=== PATIENT | female | born 1950 | race Caucasian/White ===

== ENCOUNTER 2019-05-15 16:52 | Inpatient (IN) | payer MEDICARE, OTHER ==
[~2019-05-15] VITALS: Ht 172.7 cm; Wt 72.6 kg
[2019-05-15 17:05] LABS: BASOPHILS % (AUTO) 0 % (0-10); EOSINOPHILS # (AUTO) 0.2 10^3/uL (0.0-0.3); EOSINOPHILS % (AUTO) 3 % (0-10); HEMATOCRIT 35 % (35-52); HEMOGLOBIN 11.5 G/DL (11.5-16.0); LYMPHOCYTES # (AUTO) 1.7 X 10^3 (1.0-4.0); LYMPHOCYTES % (AUTO) 21 % (12-44); MEAN CORPUSCULAR HEMOGLOBIN 32 PG (25-34); MEAN CORPUSCULAR HGB CONC 33 G/DL (32-36); MEAN CORPUSCULAR VOLUME 96 FL (80-99); MEAN PLATELET VOLUME 10.3 FL (7.4-10.4); MONOCYTES # (AUTO) 0.5 X 10^3 (0.0-1.0); MONOCYTES % (AUTO) 6 % (0-12); NEUTROPHILS # (AUTO) 5.7 X 10^3 (1.8-7.8); NEUTROPHILS % (AUTO) 70 % (42-75); PLATELET COUNT 240 10^3/uL (130-400); RED CELL DISTRIBUTION WIDTH 12.2 % (10.0-14.5); WHITE BLOOD COUNT 8.1 10^3/uL (4.3-11.0)
[2019-05-15 17:12] LABS: INR 1.1 (0.8-1.4); PROTHROMBIN TIME PATIENT 14.9 SEC (12.2-14.7)
--- NOTE | 2019-05-15 17:29 | Diagnostic Imaging Report ---
PROCEDURE: CT head and CT cervical spine without contrast. TECHNIQUE: Multiple contiguous axial images were obtained through the brain and cervical spine without the use of intravenous contrast. Sagittal and coronal reformations through the cervical spine were then performed. Auto Exposure Controls were utilized during the CT exam to meet ALARA standards for radiation dose reduction. INDICATION: Fall with head and neck pain. COMPARISON: No prior studies are available for comparison. FINDINGS: CT head: The ventricles and sulci are within normal limits. No sulcal effacement or midline shift is detected. Cisterns are patent. Visualized paranasal sinuses are clear. IMPRESSION: No acute intracranial process is detected. CT cervical spine: Curvature and alignment is normal. There is generalized cervical degenerative disc and facet disease. It is greatest at C4-C5 and C5-C6 levels with moderate disc space narrowing and marginal spurring. Prevertebral tissues are normal. No fractures are identified. Odontoid is intact. IMPRESSION: Cervical spondylosis. No acute bony abnormality is detected. Dictated by: Dictated on workstation # [id number]
[2019-05-15 17:31] LABS: ALBUMIN 3.8 GM/DL (3.2-4.5); BILIRUBIN,TOTAL 0.2 MG/DL (0.1-1.0); CREATININE SERUM 1.14 MG/DL (0.60-1.30); POTASSIUM 3.4 MMOL/L (3.6-5.0); TOTAL PROTEIN 6.6 GM/DL (6.4-8.2)
--- NOTE | 2019-05-15 17:32 | Diagnostic Imaging Report ---
INDICATION: Fall. TIME OF EXAM: 5:21 p.m. COMPARISON: No prior studies are available for comparison. FINDINGS: The heart size is normal. The lungs are clear. No infiltrate, effusion, or pneumothorax is seen. Bony structures are unremarkable. IMPRESSION: No acute abnormality is detected. Dictated by: Dictated on workstation # [id number]
[2019-05-15] MEDS ORDERED: fentaNYL INJECTION 100 MCG/2 ML AMP IVP STA (17:33)
--- NOTE | 2019-05-15 17:35 | Diagnostic Imaging Report ---
INDICATION: Fall, left leg pain. TIME OF EXAM: 5:16 PM FINDINGS: Left femoral neck fracture is noted. There is coxa varus deformity. Remainder of the femur appears to be intact. There is normal alignment at the knee. IMPRESSION: Left femoral neck fracture. Dictated by: Dictated on workstation # [id number]
--- NOTE | 2019-05-15 17:40 | Diagnostic Imaging Report ---
INDICATION: Fall with left leg pain. TIME OF EXAM: 05:15 p.m. FINDINGS: AP view of the pelvis and two views of the left hip demonstrate an acute fracture through the left femoral neck. Femoroacetabular alignment is maintained. Right hip is intact. Rami are intact. IMPRESSION: Left femoral neck fracture. Dictated by: Dictated on workstation # [id number]
--- NOTE | 2019-05-15 17:50 | ED Fall/Injury ---
General Chief Complaint: Trauma EMS/Air Arrival Activat Stated Complaint: L HIP PAIN,FALL Nursing Triage Note: fall, fell down unknown number of steps in garage, unknown LOC Source: patient Exam Limitations: no limitations History of Present Illness Date Seen by Provider: May 15, 2019 Time Seen by Provider: 16:54 Initial Comments Here with report of fall down several steps in the garage at a friend's house. She does not remember past the fall for a brief period time and is unsure if she lost consciousness. She is on blood thinners for history of pulmonary embolism a month ago. Does have a laceration to the right forearm and complains of severe left hip pain. EMS did give fentanyl after establishing IV and a dose of 50 g. This did help some. Unsure she hit her head. Denies other injuries of the chest or abdomen. Unsure when her last tetanus shot was. She is from [place], [place]. Occurred: just prior to arrival (approximately 30-45 minutes ago) Severity: moderate Injuries/Pain Location: upper extremity, pelvis, lower extremity Context: tripped Loss of Consciousness: unsure Modifying Factors: Improves With Immobilization; Worse With Movement; Improves With Pain Medication, Improves With Rest Associated Symptoms (Fall): No Abdominal Pain, No Chest Pain, No Confusion, No Headache, No Lightheadedness; Muscle Spasms (leg); No Neck Pain, No Shortness of Air Allergies and Home Medications Allergies Coded Allergies: No Known Drug Allergies (Unverified , 05/15/19) Patient Home Medication List Home Medication List Reviewed: Yes (reviewed pharmacy reconciliation list and is on blood thinners as well as endocrine meds.) Review of Systems Review of Systems Constitutional: see HPI; No chills, No fever Eyes: No Symptoms Reported Ears, Nose, Mouth, Throat: no symptoms reported Respiratory: No cough, No short of breath Cardiovascular: No chest pain Gastrointestinal: No abdominal pain, No nausea, No vomiting Genitourinary: no symptoms reported Musculoskeletal: see HPI; No back pain; joint pain, muscle pain; No neck pain Skin: No change in color; lesions (3 cm laceration right forearm) Psychiatric/Neurological: No Symptoms Reported All Other Systems Reviewed Negative Unless Noted: Yes Past Lfkmdba-Lkpkap-Vvhbsl Hx Past Med/Social Hx: Reviewed Nursing Past Med/Soc Hx Patient Social History Alcohol Use: Denies Use Recreational Drug Use: No Smoking Status: Never a Smoker Recent Foreign Travel: No Contact w/Someone Who Travel: No Recent Infectious Disease Expo: No Past Medical History Surgeries: Yes Orthopedic Respiratory: Yes Pulmonary Embolism Cardiac: No Neurological: No Genitourinary: No Gastrointestinal: No Musculoskeletal: Yes Fractures Endocrine: Yes (endocrine disorder involving thyroid and other endocrine systems) Hypothyroidsim Cancer: No Psychosocial: Yes Depression Family Medical History No Pertinent Family Hx Physical Exam Vital Signs Vital Signs - First Documented 05/15/19 16:52 Temp 98.5 Pulse 109 Resp 20 B/P (MAP) 153/72 (99) Pulse Ox 98 O2 Delivery Room Air Capillary Refill : Less Than 3 Seconds Height, Weight, BMI Height: 5'8.00" Weight: 155lbs. oz. 70.699801sq; 21.09 BMI Method:Stated General Appearance: WD/WN, moderate distress HEENT: PERRL/EOMI, pharynx normal Neck: non-tender, full range of motion, supple, normal inspection Cardiovascular: no murmur, tachycardia Respiratory: lungs clear Peripheral Pulses: 2+ Dorsalis Pedis (R), 2+ Left Dors-Pedis (L), 2+ Radial Pulses (R), 2+ Radial Pulses (L) Gastrointestinal: non tender, soft Back: normal inspection, no CVA tenderness, no vertebral tenderness Extremities: no pedal edema, no calf tenderness, other (significant pain to left hip with muscle spasms noted to the upper thigh. Shortened and externally rotated leg on the left.) Neurologic/Psychiatric: alert, normal mood/affect, oriented x 3 Skin: normal color, warm/dry, other (3 cm laceration left forearm) Lymphatic: no adenopathy [address] Coma Score Best Eye Response: (4) Open Spontaneously Best Verbal Response: (5) Oriented Best Motor Response: (6) Obeys Commands Progress/Results/Core Measures Results/Orders Lab Results Laboratory Tests Test 05/15/19 16:55 05/15/19 18:06 Range/Units White Blood Count 8.1 4.3-11.0 10^3/uL Red Blood Count 3.58 L 4.35-5.85 10^6/uL Hemoglobin 11.5 11.5-16.0 G/DL Hematocrit 35 35-52 % Mean Corpuscular Volume 96 80-99 FL Mean Corpuscular Hemoglobin 32 25-34 PG Mean Corpuscular Hemoglobin Concent 33 32-36 G/DL Red Cell Distribution Width 12.2 10.0-14.5 % Platelet Count 240 130-400 10^3/uL Mean Platelet Volume 10.3 7.4-10.4 FL Neutrophils (%) (Auto) 70 42-75 % Lymphocytes (%) (Auto) 21 12-44 % Monocytes (%) (Auto) 6 0-12 % Eosinophils (%) (Auto) 3 0-10 % Basophils (%) (Auto) 0 0-10 % Neutrophils # (Auto) 5.7 1.8-7.8 X 10^3 Lymphocytes # (Auto) 1.7 1.0-4.0 X 10^3 Monocytes # (Auto) 0.5 0.0-1.0 X 10^3 Eosinophils # (Auto) 0.2 0.0-0.3 10^3/uL Basophils # (Auto) 0.0 0.0-0.1 10^3/uL Prothrombin Time 14.9 H 12.2-14.7 SEC INR Comment 1.1 0.8-1.4 Activated Partial Thromboplast Time 24 24-35 SEC Sodium Level 137 135-145 MMOL/L Potassium Level 3.4 L 3.6-5.0 MMOL/L Chloride Level 103 98-107 MMOL/L Carbon Dioxide Level 24 21-32 MMOL/L Anion Gap 10 5-14 MMOL/L Blood Urea Nitrogen 22 H 7-18 MG/DL Creatinine 1.14 0.60-1.30 MG/DL Estimat Glomerular Filtration Rate 48 BUN/Creatinine Ratio 19 Glucose Level 97 70-105 MG/DL Calcium Level 9.0 8.5-10.1 MG/DL Corrected Calcium 9.2 8.5-10.1 MG/DL Total Bilirubin 0.2 0.1-1.0 MG/DL Aspartate Amino Transf (AST/SGOT) 24 5-34 U/L Alanine Aminotransferase (ALT/SGPT) 31 0-55 U/L Alkaline Phosphatase 83 40-136 U/L Total Protein 6.6 6.4-8.2 GM/DL Albumin 3.8 3.2-4.5 GM/DL Urine Color YELLOW Urine Clarity CLEAR Urine pH 7 5-9 Urine Specific [place] 1.020 1.016-1.022 Urine Protein NEGATIVE NEGATIVE Urine Glucose (UA) NEGATIVE NEGATIVE Urine Ketones NEGATIVE NEGATIVE Urine Nitrite NEGATIVE NEGATIVE Urine Bilirubin NEGATIVE NEGATIVE Urine Urobilinogen NORMAL NORMAL MG/DL Urine Leukocyte Esterase NEGATIVE NEGATIVE Urine RBC (Auto) NEGATIVE NEGATIVE Urine RBC NONE /HPF Urine WBC NONE /HPF Urine Squamous Epithelial Cells 0-2 /HPF Urine Crystals NONE /LPF Urine Bacteria TRACE /HPF Urine Casts NONE /LPF Urine Mucus NEGATIVE /LPF Urine Culture Indicated NO My Orders Orders - RONNIE DOWLING MD Ct Head/Cervical Spine Wo (05/15/19 16:57) Chest 1 View, Ap/Pa Only (05/15/19 16:57) Femur, Left, 2 Views (05/15/19 16:57) Pelvis With Left Hip 2-3 Views (05/15/19 16:57) Cbc With Automated Diff (05/15/19 16:57) Comprehensive Metabolic Panel (05/15/19 16:57) Ua Culture If Indicated (05/15/19 16:57) Monitor-Rhythm Ecg Trace Only (05/15/19 16:57) End Tidal Co2 (05/15/19 16:57) Protime With Inr (05/15/19 16:57) Partial Thromboplastin Time (05/15/19 16:57) Fentanyl Injection (Sublimaze Injection (05/15/19 17:33) Catheter(Urinary) Insert & Ass 03,15 (05/15/19 17:51) Catheter(Urinary) Insert & Ass 03,15 (05/15/19 17:55) Dipht,Pertuss(Acell),Tet Adult (Boostrix (05/15/19 18:00) Lidocaine 1% Inj 20 Ml (Xylocaine 1% Inj (05/15/19 18:00) Hydromorphone Injection (Dilaudid Inject (05/15/19 18:16) Ketorolac Injection (Toradol Injection) (05/15/19 19:08) Hydromorphone Injection (Dilaudid Inject (05/15/19 19:15) Medications Given in ED Current Medications Medications Dose Ordered Sig/Latrell Route Start Time Stop Time Status Last Admin Dose Admin Diphtheria/ Tetanus/Acell Pertussis 0.5 ml ONCE ONCE IM 05/15/19 18:00 05/15/19 18:01 DC 05/15/19 18:27 0.5 ML Hydromorphone HCl 0.5 mg ONCE ONCE IV 86/19 19:15 05/15/19 19:16 DC 05/15/19 19:16 0.5 MG Hydromorphone HCl 2 mg STK-MED ONCE .ROUTE 05/15/19 18:16 05/15/19 18:22 DC 05/15/19 18:24 0.5 MG Lidocaine HCl 20 ml ONCE ONCE INJ 05/15/19 18:00 05/15/19 18:01 DC 05/15/19 18:34 20 ML Vital Signs/I&O 05/15/19 16:52 Temp 98.5 Pulse 109 Resp 20 B/P (MAP) 153/72 (99) Pulse Ox 98 O2 Delivery Room Air Blood Pressure Mean: 99 Progress Progress Note : Progress Note Type 2 trauma activation due to age, blood thinners and report of possible loss of consciousness. ATLS exam performed. Concerns of left hip fracture. IV by EMS. Labs, CT head and neck, chest x-ray, pelvis and left hip x-ray and left femur x- ray ordered. Tetanus ordered. Monitor patient. 1749: Hip fracture noted. I did discuss the case at length with the patient. She is from [facility] and has complex endocrine disorder as well as history of recent DVT. Her ort hopedist an security systems specialist are at [place] [facility] and she would like to pursue care in her medical system which is appropriate. She would like to talk with her about this more. 1839: Patient would like me to pursue transfer. I will make contact with [facility] in [facility]. 1855: I have discussed the case with the transfer center at [facility] in [place], [place]. They are currently on ER diversion and are unable to accept the patient at this point. Patient's is here and they have asked me to call the patient's orthopedic surgeon and they did give me his phone number. His name is Dr. Franc Hoskins.1906: I have called and left message with him and am pending call back. 1908: Patient has had repeat doses of pain medicine with Dilaudid 0.5 mg 1 earlier and I will repeat that times one now as well as Toradol 15 mg IV due to persistent pain. We have tried comfort measures as well with positioning. 1999: I have discussed the case with patient's orthopedic surgeon who works at a fre[facility]anding surgery [facility] and is not able to help with transfer to [facility] but did provide quite a bit of medical information which was very helpful. Patient did have blood clot approximately 1- 1/2 month ago to the lungs and is currently on Eliquis for that. Her endocrine disorders is to be mostly related to hypothyroidism that is controlled current ly. Pituitary system was reported to be okay. Patient does have underlying depression and anxiety that is well controlled. I have discussed the case with Dr. Cullen and he will see the patient in consult and evaluate for surgery but is concerned related to Eliquis use. Patient's last dose of Eliquis was 8 AM this morning and has not had any of her evening doses. Dr. Cullen is requesting clearance and patient to remain nothing by mouth overnight. He is also requesting Segovia's traction at 5 pounds which was ordered. I did discuss the case with Dr. OROURKE and he has accepted patient for admission. We will continue Dilaudid as needed for pain as well as fluids and nausea medicines. I discussed the case with Dr. Bennett and he is recommending bridge with heparin as that is the safest and will require the least time for clearance for surgery. Patient will need 24 hours for clearance from her Eliquis. Again her last dose was 8 AM this morning so 24 hours would be a a.m. tomorrow morning. He will see her for medical clearance as well. EKG in the a.m. I did discuss all of this with the patient and family. At this point it seems reasonable to pursue the surgery here although there is still possibility that they could consider transfer to [facility] if it were to open up from diversion in the future. Patient and family are in agreement with plan. Currently patient is comfortable and without distress. All questions answered. Diagnostic Imaging Diagonstic Imaging: CT Plain Films/CT/US/NM/MRI: c-spine, head Comments NAME: LEI JULIO [facility] REC#: [id number] PT STATUS: REG ER : 1950 PHYSICIAN: RONNIE DOWLING MD ADMIT DATE: 05/15/19/ER Signed Date of Exam: 05/15/19 CT HEAD/CERVICAL SPINE WO PROCEDURE: CT head and CT cervical spine without contrast. TECHNIQUE: Multiple contiguous axial images were obtained through the brain and cervical spine without the use of intravenous contrast. Sagittal and coronal reformations through the cervical spine were then performed. Auto Exposure Controls were utilized during the CT exam to meet ALARA standards for radiation dose reduction. INDICATION: Fall with head and neck pain. COMPARISON: No prior studies are available for comparison. FINDINGS: CT head: The ventricles and sulci are within normal limits. No sulcal effacement or midline shift is detected. Cisterns are patent. Visualized paranasal sinuses are clear. IMPRESSION: No acute intracranial process is detected. CT cervical spine: Curvature and alignment is normal. There is generalized cervical degenerative disc and facet disease. It is greatest at C4-C5 and C5-C6 levels with moderate disc space narrowing and marginal spurring. Prevertebral tissues are normal. No fractures are identified. Odontoid is intact. IMPRESSION: Cervical spondylosis. No acute bony abnormality is detected. Dictated by: Dictated on workstation # [id number] Dict: 05/15/19 172 Trans: 05/15/191753 Interpreted by: ESTEFANIA CARTER MD Electronically signed by: ESTEFANIA CARTER MD 05/15/191753 Diagonstic Imaging: Xray Plain Films/CT/US/NM/MRI: pelvis, hip Comments NAME: LEI JULIO [facility] REC#: [id number] PT STATUS: REG ER : 1950 PHYSICIAN: RONNIE DOWLING MD ADMIT DATE: 05/15/19/ER Signed Date of Exam: 05/15/19 PELVIS WITH LEFT HIP 2-3 VIEWS INDICATION: Fall with left leg pain. TIME OF EXAM: 05:15 p.m. FINDINGS: AP view of the pelvis and two views of the left hip demonstrate an acute fracture through the left femoral neck. Femoroacetabular alignment is maintained. Right hip is intact. Rami are intact. IMPRESSION: Left femoral neck fracture. Dictated by: Dictated on workstation # [id number] Dict: 05/15/19 1730 Trans: 05/15/191753 Interpreted by: ESTEFANIA CARTER MD Electronically signed by: ESTEFANIA CARTER MD 05/15/19 1754 Diagonstic Imaging: Xray Plain Films/CT/US/NM/MRI: other Comments NAME: ELI JULIO [facility] REC#: [id number] PT STATUS: REG ER : 1950 PHYSICIAN: RONNIE DOWLING MD ADMIT DATE: 05/15/19/ER Signed Date of Exam: 05/15/19 FEMUR, LEFT, 2 VIEWS INDICATION: Fall, left leg pain. TIME OF EXAM: 5:16 PM FINDINGS: Left femoral neck fracture is noted. There is coxa varus deformity. Remainder of the femur appears to be intact. There is normal alignment at the knee. IMPRESSION: Left femoral neck fracture. Dictated by: Dictated on workstation # [id number] Dict: 05/15/191730 Trans: 05/15/191753 Interpreted by: ESTEFANIA CARTER MD Electronically signed by: ESTEFANIA CARTER MD 05/15/191753 Diagonstic Imaging: Xray Plain Films/CT/US/NM/MRI: chest Comments NAME: LEI JULIO [facility] REC#: [id number] PT STATUS: REG ER : 1950 PHYSICIAN: RONNIE DOWLING MD ADMIT DATE: 05/15/19/ER Signed Date of Exam: 05/15/19 CHEST 1 VIEW, AP/PA ONLY INDICATION: Fall. TIME OF EXAM: 5:21 p.m. COMPARISON: No prior studies are available for comparison. FINDINGS: The heart size is normal. The lungs are clear. No infiltrate, effusion, or pneumothorax is seen. Bony structures are unremarkable. IMPRESSION: No acute abnormality is detected. Dictated by: Dictated on workstation # [id number] Dict: 05/15/191729 Trans: 05/15/191753 Interpreted by: ESTEFANIA CARTER MD Electronically signed by: ESTEFANIA CARTER MD 05/15/191753 Departure Communication (Admissions) Time/Spoke to Admitting Phy: 19:51 Time/Spoke to Consulting Phy: 19:46 Impression Primary Impression: Closed left hip fracture Additional Impressions: Hypothyroidism History of pulmonary embolus (PE) Disposition: ADMITTED INPATIENT Condition: Stable Admissions Decision to Admit Reason: Admit from ER (General) Decision to Admit/Date: May 15, 2019 Time/Decision to Admit Time: 19:46 Departure-Patient Inst. Referrals: NO,LOCAL PHYSICIAN (PCP/Family) Primary Care Physician RONNIE DOWLING MD May 15, 2019 17:50
[2019-05-15] MEDS ORDERED: TETANUS,DIPTH,PERTUSS P/F (BOOSTRIX) 0.5 ML VIAL IM ONE (18:00)
[2019-05-15] MEDS ORDERED: LIDOCAINE 1% INJ 20 ML 20 ML VIAL INJ ONE (18:00)
[2019-05-15 18:12] LABS: BILIRUBIN,URINE NEGATIVE (NEGATIVE); CLARITY,URINE CLEAR; COLOR,URINE YELLOW; GLUCOSE, URINE (UA) NEGATIVE (NEGATIVE); KETONES,URINE NEGATIVE (NEGATIVE); LEUKOCYTE ESTERASE ,URINE NEGATIVE (NEGATIVE); NITRITE,URINE NEGATIVE (NEGATIVE); PH,URINE 7 (5-9); PROTEIN,URINE NEGATIVE (NEGATIVE); UROBILINOGEN,URINE NORMAL (NORMAL)
[2019-05-15 18:17] LABS: BACTERIA,URINE TRACE /HPF; SQUAMOUS EPITHELIAL CELL,UR 0-2 /HPF
[2019-05-15] MEDS: HYDROmorphone 2 MG/ML VIAL (DILAUDID) ONE (18:24)
--- NOTE | 2019-05-15 18:29 | NUR ---
Dr Levin in room inserting sutures to laceration in R forearm, pt mark anthony well, vs assessed and stable, will continue to monitor
[2019-05-15] MEDS ORDERED: APIX5TAB PO (18:37)
[2019-05-15] MEDS ORDERED: CYCL10TA9 (18:38)
[2019-05-15] MEDS ORDERED: BUPR150T7 PO (18:38)
[2019-05-15] MEDS ORDERED: LEVO100T7 (18:38)
[2019-05-15] MEDS ORDERED: KETOROLAC 30 MG/ML VIAL IVP STA (19:08)
[2019-05-15] MEDS ORDERED: HYDROmorphone 2 MG/ML VIAL (DILAUDID) IV ONE (19:15)
[2019-05-15 21:12] LABS: TSH (THYROID ANALYZER) 5.47 UIU/ML (0.35-4.94)
--- NOTE | 2019-05-15 21:20 | NUR ---
LEI JULIO admitted to room 431-1, with an admitting diagnosis of left hip fx, on 05/15/19 from ED via bed, accompanied by staff.LEI JULIO introduced to surroundings, call light, bed controls, phone, TV, temperature control, lights, meal times, smoking policy, visitor policy, side rail policy, bathrooms and showers. Patient Rights given to patient in the handbook. LEI JULIO verbalizes understanding that [facility] is not responsible for the loss or damage to any personal effects or valuables that are kept in the patients posession during their hospitalization.
[2019-05-15 21:49] LABS: FREE T4 (FREE THYROXINE) 1.01 NG/DL (0.70-1.48)
[2019-05-15] MEDS ORDERED: ONDANSETRON 4 MG/2 ML (SDV) Z0FRAN IV PRN (22:00)
[2019-05-15] MEDS: HYDROmorphone 2 MG/ML VIAL (DILAUDID) IV PRN (22:34)
[2019-05-15 22:41] VITALS: BP 139/76
[2019-05-15] MEDS ORDERED: HEParin DRIP 25000 UNIT/500ML (ACS THERAPY) IV SCH (23:30)
[2019-05-15] MEDS ORDERED: HEParin 1000 UNIT/ML BOLUS (ACS THERAPY) IV PRN (23:30)
[2019-05-15] MEDS: NS IV 1000 ML 1,000 ML IV SCH (23:36)
[2019-05-16] VITALS (14 sets, daily range): BP systolic 28–140; BP diastolic 54–131
[2019-05-16] MEDS: HYDROmorphone 2 MG/ML VIAL (DILAUDID) IV PRN ×6 (02:19→18:50)
[2019-05-16 03:53] LABS: BASOPHILS % (AUTO) 0 % (0-10); EOSINOPHILS # (AUTO) 0.1 10^3/uL (0.0-0.3); EOSINOPHILS % (AUTO) 2 % (0-10); HEMATOCRIT 35 % (35-52); HEMOGLOBIN 11.2 G/DL (11.5-16.0); LYMPHOCYTES # (AUTO) 0.9 X 10^3 (1.0-4.0); LYMPHOCYTES % (AUTO) 17 % (12-44); MEAN CORPUSCULAR HEMOGLOBIN 31 PG (25-34); MEAN CORPUSCULAR HGB CONC 32 G/DL (32-36); MEAN CORPUSCULAR VOLUME 96 FL (80-99); MEAN PLATELET VOLUME 9.9 FL (7.4-10.4); MONOCYTES # (AUTO) 0.3 X 10^3 (0.0-1.0); MONOCYTES % (AUTO) 5 % (0-12); NEUTROPHILS % (AUTO) 76 % (42-75); PLATELET COUNT 192 10^3/uL (130-400); RED CELL DISTRIBUTION WIDTH 12.2 % (10.0-14.5); WHITE BLOOD COUNT 5.3 10^3/uL (4.3-11.0)
[2019-05-16 04:14] LABS: ALANINE AMINOTRANSFERASE 227 U/L (0-55); ALBUMIN 3.4 GM/DL (3.2-4.5); ALKALINE PHOSPHATASE 190 U/L (40-136); BILIRUBIN,TOTAL 0.6 MG/DL (0.1-1.0); BUN/CREATININE RATIO 21; CALCIUM 8.4 MG/DL (8.5-10.1); CARBON DIOXIDE 22 MMOL/L (21-32); CHLORIDE 108 MMOL/L (98-107); CREATININE SERUM 0.87 MG/DL (0.60-1.30); GFR ESTIMATED > 60; GLUCOSE 100 MG/DL (70-105); POTASSIUM 3.9 MMOL/L (3.6-5.0); SODIUM 139 MMOL/L (135-145); TOTAL PROTEIN 5.8 GM/DL (6.4-8.2)
[2019-05-16] MEDS ORDERED: HYDROmorphone 2 MG/ML VIAL (DILAUDID) ONE (04:27)
[2019-05-16] MEDS: NS IV 1000 ML 1,000 ML IV SCH ×2 (07:26→15:47)
--- NOTE | 2019-05-16 08:28 | Consultation-Cardiology ---
HPI-Cardiology Cardiology Consultation Date of Consultation 05/16/19 Date of Admission Time Seen by Provider: 08:23 Indication: history of recent PE, on Eliquis HPI Patient is a 68 y/o female, resides in [place], [place]. Was here visiting a fried when she fell down garage steps. Was evaluated in the ER and found to have left hip fracture that is requiring surgical repair. Diagnosed with PE approx 6 weeks ago and has been maintained on Eliquis. Denies any cardiac history, denies chest pain, dyspnea, dizziness, or lightheadedness. Eliquis currently on hold, last dose at 8am on 05/15/19, and on heparin gtt. Patient is scheduled to OR later this morning, but still wanting to transfer to [place] in possible. 68-year-old lady admitted with hip fracture, no previous chronic history, had recent PE, has been maintained on Eliquis. Denied any chest pain. No palpitation, syncope, shortness of breath. Home Medications & Allergies Allergies: Coded Allergies: No Known Drug Allergies (Unverified , 05/15/19) Home Medication List Reviewed: Yes [id number] Hx Patient Social History Marital Status: Employed/Student: employed Alcohol Use: Denies Use Recreational Drug Use: No Smoking Status: Never a Smoker 2nd Hand Smoke Exposure: No Recent Foreign Travel: No Recent Infectious Disease Expo: No Recent Hopitalizations: No Immunizations Up To Date Tetanus Booster (TDap): Unknown Date of Pneumonia Vaccine: Jul 15, 2018 Past Medical History hypothyroidism, anxiety/depression Family Medical History Significant Family History: No Pertinent Family Hx Family Medical Hx noncontributory Review of Systems-General Review of Systems Constitutional: see HPI; No chills, No fever EENTM: other (headache); No hearing loss, No ear pain, No blurred vision, No double vision, No eye pain, No vision loss, No mouth pain, No epistaxis, No nose pain, No throat pain, No throat swelling Respiratory: No cough, No dyspnea on exertion, No short of breath Cardiovascular: No chest pain, No edema, No Hx of Intervention, No palpitations, No vascular heart diseas Gastrointestinal: No abdominal pain, No constipation, No nausea, No vomiting Genitourinary: no symptoms reported; No dysuria, No frequency, No hematuria Musculoskeletal: see HPI; No back pain; joint pain, muscle pain; No neck pain Skin: No change in color; lesions (3 cm laceration right forearm) Psychiatric/Neurological: No Symptoms Reported All Other Systems Reviewed Negative Unless Noted: Yes Reviewed Test Results Reviewed Test Results Lab Laboratory Tests 05/15/19 16:55: White Blood Count 8.1, Red Blood Count 3.58L, Hemoglobin 11.5, Hematocrit 35, Mean Corpuscular Volume 96, Mean Corpuscular Hemoglobin 32, Mean Corpuscular Hemoglobin Concent 33, Red Cell Distribution Width 12.2, Platelet Count 240, Mean Platelet Volume 10.3, Neutrophils (%) (Auto) 70, Lymphocytes (%) (Auto) 21, Monocytes (%) (Auto) 6, Eosinophils (%) (Auto) 3, Basophils (%) (Auto) 0, Neutrophils # (Auto) 5.7, Lymphocytes # (Auto) 1.7, Monocytes # (Auto) 0.5, Eosinophils # (Auto) 0.2, Basophils # (Auto) 0.0, Prothrombin Time 14.9H, INR Comment 1.1, Activated Partial Thromboplast Time 24, Sodium Level 137, Potassium Level 3.4L, Chloride Level 103, Carbon Dioxide Level 24, Anion Gap 10, Blood Urea Nitrogen 22H, Creatinine 1.14, Estimat Glomerular Filtration Rate 48, BUN/Creatinine Ratio 19, Glucose Level 97, Calcium Level 9.0, Corrected Calcium 9.2, Total Bilirubin 0.2, Aspartate Amino Transf (AST/SGOT) 24, Alanine Aminotransferase (ALT/SGPT) 31, Alkaline Phosphatase 83, Total Protein 6.6, Albumin 3.8, Free Thyroxine 1.01, TSH [place] Testing 5.47H 05/15/19 18:06: Urine Color YELLOW, Urine Clarity CLEAR, Urine pH 7, Urine Specific [place] 1.020, Urine Protein NEGATIVE, Urine Glucose (UA) NEGATIVE, Urine Ketones NEGAT RAMSES, Urine Nitrite NEGATIVE, Urine Bilirubin NEGATIVE, Urine Urobilinogen NORMAL, Urine Leukocyte Esterase NEGATIVE, Urine RBC (Auto) NEGATIVE, Urine RBC NONE, Urine WBC NONE, Urine Squamous Epithelial Cells 0-2, Urine Crystals NONE, Urine Bacteria TRACE, Urine Casts NONE, Urine Mucus NEGATIVE, Urine Culture Indicated NO 05/16/19 03:45: White Blood Count 5.3, Red Blood Count 3.61L, Hemoglobin 11.2L, Hematocrit 35, Mean Corpuscular Volume 96, Mean Corpuscular Hemoglobin 31, Mean Corpuscular Hemoglobin Concent 32, Red Cell Distribution Width 12.2, Platelet Count 192, Mean Platelet Volume 9.9, Neutrophils (%) (Auto) 76H, Lymphocytes (%) (Auto) 17, Monocytes (%) (Auto) 5, Eosinophils (%) (Auto) 2, Basophils (%) (Auto) 0, Neutrophils # (Auto) 4.0, Lymphocytes # (Auto) 0.9L, Monocytes # (Auto) 0.3, Eosinophils # (Auto) 0.1, Basophils # (Auto) 0.0, Activated Partial Thromboplast Time 85H, Sodium Level 139, Potassium Level 3.9, Chloride Level 108H, Carbon Dioxide Level 22, Anion Gap 9, Blood Urea Nitrogen 18, Creatinine 0.87, Estimat Glomerular Filtration Rate > 60, BUN/Creatinine Ratio 21, Glucose Level 100, Calcium Level 8.4L, Corrected Calcium 8.9, Total Bilirubin 0.6, Aspartate Amino Transf (AST/SGOT) 383H, Alanine Aminotransferase (ALT/SGPT) 227H, Alkaline Phosphatase 190H, Total Protein 5.8L, Albumin 3.4, Total Creatine Kinase 290H ECG Impression ECG Initial ECG Rhythm: S.Tach Physical Exam Physical Exam Vital Signs Vital Signs - First Documented 05/15/19 16:52 Temp 98.5 Pulse 109 Resp 20 B/P (MAP) 153/72 (99) Pulse Ox 98 O2 Delivery Room Air Capillary Refill : Less Than 3 Seconds Height, Weight, BMI Height: 5'8.00" Weight: 160lbs. 0.3oz. [id number]; 24.7 BMI Method:Stated General Appearance: No Apparent Distress, WD/WN, Anxious HEENT: PERRL/EOMI, TMs Normal, Normal ENT Inspection, Pharynx Normal Neck: Full Range of Motion, Normal Inspection, Non Tender, Supple; No Carotid Bruit Respiratory: Chest Non Tender, Lungs Clear, Normal Breath Sounds, No Accessory Muscle Use, No Respiratory Distress Cardiovascular: Regular Rate, Rhythm, No Edema, No Gallop, No JVD, No Murmur, Normal Peripheral Pulses Gastrointestinal: No Pulsatile Mass, Non Tender, Soft Rectal: Deferred Back: No CVA Tenderness Extremity: Non Tender, No Calf Tenderness, Pedal Edema (left ) A/P-Cardiology Admission Diagnosis left hip fracture recent PE Hypothyroidism Headache Assessment/Plan Left hip fracture- planning for OR later this morning, however, patient lives in [place] and would still like to transfer if possible. As of yesterday afternoon Na Cuellar was on diversion. History of recent PE, unprovoked, occurring approx 6 weeks ago. Has been maintained on Eliquis. Last dose Eliquis 05/15/19 at 0800, currently on heparin gtt in anticipation for OR later today. I will evaluate 2D Echo Hypothyroidism- follows with health insurance adjuster in [place]. Headache- CT head done in ER negative Elevated LFT's- continue to monitor. Celiac disease Hx of vocal cord paralysis Thank you for allowing us to participate in the management of Ms. Weathers. This is Kala Cornejo PA-C, as a scribe for Dr. Bennett. This is Dr. Bennett, if seen and evaluated the patient with Kala, examined the patient, discussed the management plan and agree with the current scribed note. On examination lungs were clear to auscultation bilateral, heart is regular rate and rhythm, patient had hip fracture, planning to have hip surgery today. She lives in [place], no previous cardiac history, was on Eliquis for unprovoked pulmonary embolism. Had history of hypothyroidism. There is no contraindication to proceed with the planned surgery, she is considered at low to intermediate risk for perioperative cardiac vascular complications, decision regarding the surgery, risk versus benefit is deferred to the surgeon. Patient will be starting on Eliquis postoperatively when deemed reasonable by the surge on. Continue to monitor EKG. Evaluate echocardiogram. Monitor liver enzymes. I reviewed the note and made few minor modifications using Italic font Clinical Quality Measures DVT/VTE Risk/Contraindication: Risk Factor Score Per Nursin RFS Level Per Nursing on Admit: 4+=Very High KALA PRITCHETT May 16, 2019 08:28 DEE BENNETT MD May 16, 2019 11:35
[2019-05-16] MEDS ORDERED: ESTR0.5T PO (09:09)
[2019-05-16] MEDS ORDERED: CYCL5TAB PO (09:09)
[2019-05-16] MEDS ORDERED: LEVO50TA6 PO (09:09)
[2019-05-16] MEDS ORDERED: LORA1TAB PO (09:09)
--- NOTE | 2019-05-16 09:15 | Consultation - Ortho ---
Consult - Ortho Subjective Date of Exam 05/16/19 Chief Complaint Displaced subcapital fracture left hip HPI/Events since last exam The patient is a 68-year-old white female who fell last evening at a friend's home injuring her left hip. She was seen in the emergency room where she was evaluated and x-rayed noted to have a displaced subcapital or femoral neck fracture of the left hip. She denies any previous problems with her left hip. She is from [place]. Her works at [employer] in [place]. She had requested transfer to [facility] but they were under version so she was unable to be transferred. Dr. Perez attempted this morning to get her transferred and spoke to her orthopedist that he was unable to help in this situation due to the diversion. Medical, Surgical History The patient denies any previous left hip problems. She does have a history of a pulmonary emboli 1 month ago. I reviewed her other medical and surgical history and no additions or changes Social History Again the patient lives in [place] with her Family History Reviewed and no additions or changes Review of Systems Reviewed and no additions or changes Allergies: Coded Allergies: No Known Drug Allergies (Unverified , 05/15/19) Home Meds Reported Medications Bupropion HCl (Bupropion Xl) 150 Mg Tab.er.24h 05/15/19 Levothyroxine Sodium (Levothyroxine Sodium) 100 Mcg Tablet 05/15/19 Cyclobenzaprine HCl (Cyclobenzaprine HCl) 10 Mg Tablet 05/15/19 Apixaban (Eliquis) 5 Mg Tablet 05/15/19 Objective Exam Constitutional: [] HEENT:] Neck: [] No pain with palpation or range of motion Cardiovascular: [] Respiratory: [] Gastrointestinal: [] Genitourinary: [] Skin: [] Back/Spine: [] No lower back pain with palpation although the patient does have back pain but thinks it's positional due to the fact that she Flat on her back since admission Extremities: [] Full range of motion of both upper extremities at the shoulder, elbow, wrist. No pain or crepitation. No deformity. Normal sensation to the fingers and thumb with good cap refill and good radial pulses. No pain with palpation of the fingers or thumb. Lower extremitiesno pain with range of motion right hip right knee or right ankle. Pain with motion and palpation left hip. No pain left knee or left ankle. She has normal sensation of the foot and toes with good capillary refill and symmetrical pulses. Neurologic: [] Psychiatric: [] Hematologic/lymphatic/immunologic: [] Vital Signs Vital Signs Date Time Temp Pulse Resp B/P (MAP) Pulse Ox O2 Delivery O2 Flow Rate FiO2 05/16/19 08:00 99.5 110 20 129/60 (83) 90 Room Air 05/16/19 04:13 98.0 103 18 128/61 (83) 94 Room Air 05/16/19 02:03 Room Air 05/16/19 01:00 99 05/16/19 00:02 98.7 79 16 140/85 (103) 98 Room Air 05/15/19 22:41 97.6 94 16 139/76 97 Room Air 05/15/19 22:13 97 05/15/19 20:55 98.5 100 18 135/108 (117) 98 Room Air 05/15/19 16:52 98.5 109 20 153/72 (99) 98 Room Air I & O 05/16/19 07:00 Intake Total 0 ml Output Total 1200 ml Balance -1200 ml Lab Results Laboratory Tests 05/15/19 16:55: White Blood Count 8.1, Red Blood Count 3.58L, Hemoglobin 11.5, Hematocrit 35, Mean Corpuscular Volume 96, Mean Corpuscular Hemoglobin 32, Mean Corpuscular Hemoglobin Concent 33, Red Cell Distribution Width 12.2, Platelet Count 240, Mean Platelet Volume 10.3, Neutrophils (%) (Auto) 70, Lymphocytes (%) (Auto) 21, Monocytes (%) (Auto) 6, Eosinophils (%) (Auto) 3, Basophils (%) (Auto) 0, Neutrophils # (Auto) 5.7, Lymphocytes # (Auto) 1.7, Monocytes # (Auto) 0.5, Eosinophils # (Auto) 0.2, Basophils # (Auto) 0.0, Prothrombin Time 14.9H, INR Comment 1.1, Activated Partial Thromboplast Time 24, Sodium Level 137, Potassium Level 3.4L, Chloride Level 103, Carbon Dioxide Level 24, Anion Gap 10, Blood Urea Nitrogen 22H, Creatinine 1.14, Estimat Glomerular Filtration Rate 48, B UN/Creatinine Ratio 19, Glucose Level 97, Calcium Level 9.0, Corrected Calcium 9.2, Total Bilirubin 0.2, Aspartate Amino Transf (AST/SGOT) 24, Alanine Aminotransferase (ALT/SGPT) 31, Alkaline Phosphatase 83, Total Protein 6.6, Albumin 3.8, Free Thyroxine 1.01, TSH [place] Testing 5.47H 05/15/19 18:06: Urine Color YELLOW, Urine Clarity CLEAR, Urine pH 7, Urine Specific [place] 1.020, Urine Protein NEGATIVE, Urine Glucose (UA) NEGATIVE, Urine Ketones NEGATIVE, Urine Nitrite NEGATIVE, Urine Bilirubin NEGATIVE, Urine Urobilinogen NORMAL, Urine Leukocyte Esterase NEGATIVE, Urine RBC (Auto) NEGATIVE, Urine RBC NONE, Urine WBC NONE, Urine Squamous Epithelial Cells 0-2, Urine Crystals NONE, Urine Bacteria TRACE, Urine Casts NONE, Urine Mucus NEGATIVE, Urine Culture Indicated NO 05/16/19 03:45: White Blood Count 5.3, Red Blood Count 3.61L, Hemoglobin 11.2L, Hematocrit 35, Mean Corpuscular Volume 96, Mean Corpuscular Hemoglobin 31, Mean Corpuscular Hemoglobin Concent 32, Red Cell Distribution Width 12.2, Platelet Count 192, Mean Platelet Volume 9.9, Neutrophils (%) (Auto) 76H, Lymphocytes (%) (Auto) 17, Monocytes (%) (Auto) 5, Eosinophils (%) (Auto) 2, Basophils (%) (Auto) 0, Neutrophils # (Auto) 4.0, Lymphocytes # (Auto) 0.9L, Monocytes # (Auto) 0.3, Eosinophils # (Auto) 0.1, Basophils # (Auto) 0.0, Activated Partial Thromboplast Time 85H, Sodium Level 139, Potassium Level 3.9, Chloride Level 108H, Carbon Dioxide Level 22, Anion Gap 9, Blood Urea Nitrogen 18, Creatinine 0.87, Estimat Glomerular Filtration Rate > 60, BUN/Creatinine Ratio 21, Glucose Level 100, Calcium Level 8.4L, Corrected Calcium 8.9, Total Bilirubin 0.6, Aspartate Amino Transf (AST/SGOT) 383H, Alanine Aminotransferase (ALT/SGPT) 227H, Alkaline Phosphatase 190H, Total Protein 5.8L, Albumin 3.4, Total Creatine Kinase 290H Assessment and Plan Assessment Displaced subcapital/femoral neck fracture left hip. I reviewed her x-rays and I see no other fracture other than the displaced subcapital/femoral neck fracture on the left Problem List Orthopedic problem list is displaced subcapital/femoral neck fracture left hip Plan Treatment options were discussed with the patient. I talked her at length about treatment of a displaced femoral neck or subcapital fracture. We talked about hemiarthroplasty versus total hip arthroplasty. Cemented versus press-fit. We talked about the procedure risks, medications. I'm concerned about her previous PE and she understands that she is increased risk for developing DVT or PE despite prophylactic treatment. We will use Lovenox and eventually get her back on her Eliquis I talked to Dr. Prajapati about this. Considering the type of fracture, her bone quality and canal I would recommend a cemented bipolar hemiarthroplasty of the left hip. She would like to proceed. Again she would prefer going to [place] but due to diversion were unable to accomplish a transfer. She's finally staying here and having this surgery and follow-up with her orthopedist in [place]. We will proceed with surgery today once cleared Final Di[facility] Displaced subcapital/femoral neck fracture left hip Level of the visit: Level 3 JENNY CARRENO MD May 16, 2019 09:15
[2019-05-16] MEDS ORDERED: MULT1TAB69 PO (09:18)
[2019-05-16] MEDS ORDERED: LORA10TA76 PO (09:18)
[2019-05-16] MEDS ORDERED: CYAN-41 PO (09:18)
[2019-05-16] MEDS ORDERED: NORT25CA PO (09:22)
[2019-05-16] MEDS ORDERED: CELE200C PO (09:22)
--- NOTE | 2019-05-16 09:52 | NUR ---
SPOKE WITH THE PATIENT ABOUT HER MEDICATIONS. WE WENT OVER THE EXT MED HX AND SHE LISTED WHAT SHE KNOWS SHE IS TAKING. IN ADDITION TO WHAT IS SHOWN ON THE EXT MED HX [facility] [employer] AT [phone] FILLED: 02-21-19 NORTRIPTYLINE 25MG HS #90 02-21-19 CELEBREX 200MG DAILY #90 (STATES SHE IS NO LONGER TAKING) SHE TAKES VITAMIN B-12, CLARITIN PRN, AND A MTV DAILY OTC. HER ESTRADIOL 0.5MG #90 FOR 90 DAYS WAS FILLED 03-12-19 - SHE STATES SHE IS TITRATING OFF THIS AND IS CURRENTLY TAKING 1/2 TAB DAILY. AFTER THAT IS GONE SHE WILL NO LONGER TAKE IT.
[2019-05-16] MEDS ORDERED: ceFAZolin 2 GM/50 ML NS 50 ML IV NR (11:00)
[2019-05-16] MEDS ORDERED: fentaNYL INJECTION 100 MCG/2 ML AMP ONE (11:24)
[2019-05-16] MEDS ORDERED: NEOSTIGMINE 3 MG/3 ML VIAL ONE (11:24)
[2019-05-16] MEDS ORDERED: DEXAMETHASONE 10 MG/ML (DECADRON) 1 ML VIAL ONE (11:24)
[2019-05-16] MEDS ORDERED: ROCURONIUM 10 MG/ML 5 ML SYRINGE IV ONE (11:24)
[2019-05-16] MEDS ORDERED: LIDOCAINE PF 2% 5 ML (XYLOCAINE) VIAL ONE (11:24)
[2019-05-16] MEDS ORDERED: ONDANSETRON 4 MG/2 ML (SDV) Z0FRAN ONE (11:24)
[2019-05-16] MEDS ORDERED: SEVOFLURANE (ULTANE) 15 ML INHAL SOLN ONE ×5 (11:24→14:50)
[2019-05-16] MEDS ORDERED: GLYCOPYRROLATE 0.2 MG/ML (ROBINUL) 2 ML VIAL ONE (11:24)
[2019-05-16] MEDS ORDERED: MIDAZOLAM 2 MG/2 ML (VERSED) VIAL ONE (11:24)
[2019-05-16] MEDS ORDERED: proPOfol 200 MG/20 ML (DIPRIVAN) VIAL IV ONE (11:24)
--- NOTE | 2019-05-16 11:24 | NUR ---
TALKED TO DR ARMENTA REGARDING aptt LAB OF 52. PATIENT IS GOING TO SURGERY THIS MORNING. DO NOT GIVE THE BOLUS AND STOP THE HEPARIN
--- NOTE | 2019-05-16 11:29 | NUR ---
ATTEMPTED TO CALL DR CARRENO TO INFORM HIM OF APTT AND DR ARMENTA'S ORDERS. HE DID NOT ANSWER. MANAGER PLAY INFORMED AND NOTE PUT IN CHART.
--- NOTE | 2019-05-16 11:30 | NUR ---
PATIENT LEFT THE FLOOR AT THIS TIME FOR SURGERY.
[2019-05-16] MEDS: LACTATED RINGERS 1,000 ML IV PRN ×2 (12:20→13:17)
[2019-05-16] MEDS ORDERED: PHENYLEPHRINE 100 MCG/ML 10 ML (ANESTHESIA) SYR ONE (13:13)
[2019-05-16] MEDS ORDERED: NEO/POLY/BAC (NEOSPORIN) OINT 15 GM TUBE ONE (13:42)
[2019-05-16] MEDS ORDERED: ONDANSETRON 4 MG/2 ML (SDV) Z0FRAN IVP PRN (14:30)
[2019-05-16] MEDS ORDERED: HYDROmorphone 2 MG/ML VIAL (DILAUDID) IV ONE (14:30)
[2019-05-16] MEDS ORDERED: morphine INJ 10 MG/ML 1ML (SYR OR VIAL) IVP ONE (14:30)
--- NOTE | 2019-05-16 14:45 | Operative Report - Ortho ---
Operative Report Surgeon (s)/Business Relationship Manager (s) Surgeon JENNY CARRENO MD Business Relationship Manager n/a Pre-Operative Diagnosis displaced subcapital/femoral neck fracture left hip Post-Operative Diagnosis same Operative Report Date of Procedure: May 16, 2019 Name of Procedure Performed: Cemented bipolar hemiarthroplasty left hip using a cemented number 3 stem, +5 neck and a 49 x 28 mm bipolar head Description & Findings The patient was taken to the operating room in her hospital bed. She was given 2 g Ancef IV preoperatively. After administration of general anesthesia in the hospital bed she was placed on the OR table on top of the pegboard. She was then placed in the lateral decubitus position with the left side up. Pegs were placed anterior and posterior to the pelvis and anterior and posterior to the chest cage which were all well padded. Axillary roll was placed beneath the axilla on the right. At this point the left hip and leg were prepped and draped in the usual sterile manner. Incision was made from the tip of the greater trochanter slightly posterior and superior. The incision was extended distally in line with the femoral shaft. This is taken down through subjacent tissue. Bleeders are cauterized. The iliotibial band and gluteal fascia were split in line with the skin incision and retracted with a Charnley retractor. The leg was flexed and internally rotated and the soft tissue was taken off the posterior aspect of greater trochanter and short external rotators. The piriformis was identified and tagged with a #1 Vicryl suture. Piriformis and short external rotators were taken off the posterior aspect of the greater trochanter. He Was Intact and This Was Teed. The Head Was Removed with a Corkscrew and Measured 49 Mm. No Debris Was Noted within the Acetabulum. The Articular Cartilage Showed Minimal Wear. At This Point a Proximal Femoral Retractor Was Inserted and the Neck Was Trimmed Back to about 12 Mm above the Lesser Trochanter. The Canal was prepared initially with a T-handle reamer and then broaches up to a number 3 broach which was found to fit well. This is left in place and the hip was trialed with a +5 neck and the 49 mm head. The hip was stable with no pistoning in full extension was achieved. At this point the trials were removed. A cement plug was placed approximately a centimeter and half distal to the tip of the stem. The canal was irrigated and suctioned. Cement was mixed and when ready was injected with a cement gun and pressurized proximally. The femoral stem was inserted and held in place in approximately 15 of anteversion. Excess cement was removed. Once the cemented hardened the instructor apparel manufacture was removed. Small fragments of cement were removed with a rongeur. The acetabulum was irrigated and no debris was noted within the acetabulum. At this point the 28 mm x 49 mm bipolar head were inserted onto the stem and tapped in place. The hip was then reduced and again found to be stable with no pistoning and good range of motion. This point the wound was irrigated with normal saline. Drill holes were placed in the posterior aspect the greater trochanter. The capsule was closed with #1 Vicryl suture leaving one suture along which is brought to the one drill hole and greater trochanter with a suture passer. The suture from the piriformis through the other. The hip was then placed in neutral position as the sutures were tied over the greater trochanter. This point the wound was again irrigated. The iliotibial band and gluteal fascia were closed with interrupted [id number] #1 Vicryl sutures. This obtains tissue with #1 Vicryl and 2-0 Vicryl. Skin was closed with ciaran. The wound was dressed with antibiotic ointment, Adaptic and 4 x 4's and an EBD. These were then taped in position. Abduction pillow was placed between the legs. The patient was transferred to her hospital bed. She had equal leg lengths and equal rotation. Good pulses were noted. She was transferred to recovery room in good condition, she tolerated the procedure well. Estimated blood loss-200 mL Replacementnone X-rays in recovery good position of the cemented bipolar hemiarthroplasty In the recovery room the patient stated she had normal sensation to the foot and toes with good capillary refill. Good pulses. She can dorsiflex and plantarflex foot without any weakness. Again good position a left leg compared to the right with equal rotation n/a Anesthesia Type Gen. Estimated Blood Loss 200 mL Packing none. Specimen(s) collected/removed Femoral head was sent to pathology for gross only JENNY CARRENO MD May 16, 2019 14:45
--- NOTE | 2019-05-16 15:14 | Diagnostic Imaging Report ---
INDICATION: Left hip surgery. TIME OF EXAM: 02:58 p.m. FINDINGS: Single view of the left hip shows left hip arthroplasty. Prosthetic elements are in good position. No fracture or loosening is seen. Overlying skin ciaran are noted. IMPRESSION: Satisfactory postop left hip. Dictated by: Dictated on workstation # [id number]
[2019-05-16] MEDS: HYDROcodone/APAP 5 MG/325 MG (LORTAB) TAB PO PRN ×2 (15:33→20:27)
[2019-05-16] MEDS: LACTATED RINGERS 1,000 ML IV SCH (15:40)
--- NOTE | 2019-05-16 17:34 | History & Physical-Hospitalist ---
History of Present Illness HPI/Chief Complaint Sofiya Weathers is a 68yoF with PMH hypothyroidism, recent DVT/PE on Eliquis, who presents with a fall down stairs and was found to have a left hip fracture. She says that she was visiting a friend's house and they were in the pool. She got out and was trying to find her way around in the dark and she accidentally fell down three stairs to the garage floor. She was only down for about 15 minutes until the EMS arrived and brought her in by ambulance. She denies any history of broken bones. She is a non-smoker. She is currently having hip pain on my examination. She is from [place], [place] and has an orthopedic surgeon that she and her follow with there. They requested transfer to [facility] so he could operate, but unfortunately they did not have any beds available. She was amenable to staying and having the procedure, although she is a long way from home. Her is on his way to stay with her. Source: patient Exam Limitations: no limitations Date Seen 05/16/19 Time Seen by a Provider: 08:00 Attending Physician Peyton Aaron MD PCP No,Local Physician Referring Physician Date of Admission May 15, 2019 at 20:00 Home Medications & Allergies Home Medications Reviewed patient Home Medication Reconciliation performed by pharmacy medication reconciliations mix technician and/or nursing. Patients Allergies have been reviewed. Allergies Allergies Coded Allergies No Known Drug Allergies (Unverified05/15/19) Past Ixbylbt-Mvjtpe-Gtizfo Hx Past Med/Social Hx: Reviewed Nursing Past Med/Soc Hx Patient Social History Marrital Status: Employed/Student: employed Alcohol Use: Denies Use Recreational Drug Use: No Smoking Status: Never a Smoker 2nd Hand Smoke Exposure: No Recent Foreign Travel: No Contact w/other who traveled: No Recent Hopitalizations: No Recent Infectious Disease Expo: No Immunizations Up To Date Tetanus Booster (TDap): Unknown Date of Pneumonia Vaccine: Jul 15, 2018 Seasonal Allergies Seasonal Allergies: No Past Medical History Surgeries: Orthopedic Currently Using CPAP: No Currently Using BIPAP: No Musculoskeletal: Fractures Endocrine: Hypothyroidsim Psychosocial: Depression History of Blood Disorders: No Family History No Pertinent Family Hx Review of Systems Constitutional: diaphoresis, fever EENTM: no symptoms reported Respiratory: no symptoms reported Cardiovascular: no symptoms reported Gastrointestinal: No abdominal pain, No constipation, No diarrhea, No nausea, No vomiting Genitourinary: no symptoms reported Musculoskeletal: other (left hip pain) Psychiatric/Neurological: No Symptoms Reported Physical Exam Physical Exam Vital Signs Vital Signs - First Documented 05/15/19 16:52 Temp 98.5 Pulse 109 Resp 20 B/P (MAP) 153/72 (99) Pulse Ox 98 O2 Delivery Room Air Capillary Refill : Less Than 3 SecondsLess Than 3 Seconds Height, Weight, BMI Height: 5'8.00" Weight: 160lbs. 0.3oz. [id number]; 24.7 BMI Method:Stated General Appearance: Moderate Distress, Other (uncomfortable appearing) HEENT: PERRL/EOMI, Pharynx Normal Neck: Full Range of Motion, Non Tender, Supple Respiratory: Lungs Clear, Normal Breath Sounds, No Respiratory Distress Cardiovascular: Regular Rate, Rhythm, No Edema, No Murmur Gastrointestinal: Normal Bowel Sounds, Non Tender, Soft Extremity: No Non Tender Neurologic/Psychiatric: Alert; No Disoriented Skin: Normal Color, Warm/Dry Results Results/Procedures Labs Laboratory Tests 05/15/19 16:55 05/16/19 03:45 Patient resulted labs reviewed. Imaging: Reviewed Imaging Report Assessment/Plan Admission Diagnosis Left femoral neck fracture Admission Status: Inpatient Order (span 2 midnights) Reason for Inpatient Admission: Elevated liver enzymes DVT/PE Assessment and Plan Preoperative evaluation -Meets >4 METS -RCRI 0 -She is an intermediate risk patient undergoing an intermediate risk procedure Left femoral neck fracture Fall down stairs -Plan for OR today with Dr. Cullen -Pain regimen ordered DVT/PE -Last dose of Eliquis 8/6 am -Started on heparin gtt -Resume Eliquis this evening following surgery Elevated LFTs -Unclear if liver or muscle related due to fall -No abdominal pain or tenderness -Obtain CK level -Continue to monitor Hypothyroidism -Continue levothyroxine Clinical Quality Measures DVT/VTE Risk/Contraindication: Risk Factor Score Per Nursin RFS Level Per Nursing on Admit: 4+=Very High PEYTON AARON MD May 16, 2019 17:34
[2019-05-16] MEDS ORDERED: ceFAZolin 2 GM/50 ML NS 50 ML IV ONE (20:00)
[2019-05-16] MEDS: NORTRIPTYLINE 25 MG (PAMELOR) CAP PO SCH (20:27)
[2019-05-16] MEDS: APIXABAN 5 MG (ELIQUIS) TABLET PO SCH (20:28)
[2019-05-16] MEDS: buPROPion SR 150 MG (WELLBUTRIN SR) TAB PO SCH (20:28)
[2019-05-16] MEDS ORDERED: ENOXAPARIN 40 MG/0.4 ML (LOVENOX) SYR SC SCH (22:00)
[2019-05-17] VITALS: BP 137/81
[2019-05-17] MEDS: HYDROcodone/APAP 5 MG/325 MG (LORTAB) TAB PO PRN ×6 (00:38→21:28)
[2019-05-17] MEDS: LACTATED RINGERS 1,000 ML IV SCH ×4 (00:39→22:30)
[2019-05-17] MEDS: fentaNYL INJECTION 100 MCG/2 ML AMP IVP PRN ×5 (00:39→23:57)
[2019-05-17] MEDS: LEVOTHYROXINE 50 MCG (LEVOTHROID) TAB PO SCH (01:34)
[2019-05-17 04:33] VITALS: BP 134/79
[2019-05-17] MEDS: HYDROmorphone 2 MG/ML VIAL (DILAUDID) IV PRN (05:04)
[2019-05-17 06:41] LABS: BASOPHILS % (AUTO) 0 % (0-10); EOSINOPHILS # (AUTO) 0.1 10^3/uL (0.0-0.3); EOSINOPHILS % (AUTO) 1 % (0-10); HEMATOCRIT 30 % (35-52); HEMOGLOBIN 9.7 G/DL (11.5-16.0); LYMPHOCYTES # (AUTO) 0.4 X 10^3 (1.0-4.0); LYMPHOCYTES % (AUTO) 6 % (12-44); MEAN CORPUSCULAR HEMOGLOBIN 32 PG (25-34); MEAN CORPUSCULAR HGB CONC 33 G/DL (32-36); MEAN CORPUSCULAR VOLUME 98 FL (80-99); MEAN PLATELET VOLUME 11.3 FL (7.4-10.4); MONOCYTES # (AUTO) 0.5 X 10^3 (0.0-1.0); MONOCYTES % (AUTO) 7 % (0-12); NEUTROPHILS # (AUTO) 6.3 X 10^3 (1.8-7.8); NEUTROPHILS % (AUTO) 87 % (42-75); PLATELET COUNT 186 10^3/uL (130-400); WHITE BLOOD COUNT 7.3 10^3/uL (4.3-11.0)
[2019-05-17 08:00] VITALS: BP 121/73
[2019-05-17 08:05] LABS: ALANINE AMINOTRANSFERASE 377 U/L (0-55); ALBUMIN 3.1 GM/DL (3.2-4.5); ALKALINE PHOSPHATASE 245 U/L (40-136); BILIRUBIN,TOTAL 0.5 MG/DL (0.1-1.0); BUN/CREATININE RATIO 12; CALCIUM 8.1 MG/DL (8.5-10.1); CARBON DIOXIDE 22 MMOL/L (21-32); CHLORIDE 107 MMOL/L (98-107); CREATININE SERUM 0.78 MG/DL (0.60-1.30); GFR ESTIMATED > 60; GLUCOSE 108 MG/DL (70-105); POTASSIUM 3.8 MMOL/L (3.6-5.0); SODIUM 140 MMOL/L (135-145); TOTAL PROTEIN 5.6 GM/DL (6.4-8.2)
[2019-05-17] MEDS: APIXABAN 5 MG (ELIQUIS) TABLET PO SCH ×2 (08:36→20:25)
--- NOTE | 2019-05-17 09:30 | Progress Note - Ortho ---
Progress Note Subjective Date of Exam 05/17/19 Chief Complaint POD#1 cemented bipolar hemiarthroplasty left hip HPI/Events since last exam Mrs. Weathers deserves a mild pain left hip. She stated they had to change the dressing last night due to bleeding. Therapy try to get her up today but she is a little lightheaded after a fentanyl dose. Otherwise she is doing well. She denies any numbness or tingling. Review of Systems Unchanged Allergies: Coded Allergies: No Known Drug Allergies (Unverified , 05/15/19) Home Meds Reported Medications Nortriptyline HCl (Nortriptyline HCl) 25 Mg Capsule, 25 MG PO HS, CAP 05/16/19 Multivitamin (Multivitamins) 1 Each Tablet, 1 TAB PO DAILY, TAB 05/16/19 Cyanocobalamin (Vitamin B-12) (Vitamin B-12) 1,000 Mcg Tablet, 1000 MCG PO DAILY, TAB 05/16/19 Loratadine (Claritin) 10 Mg Tablet, 10 MG PO DAILY PRN for ALLERGIES, TAB 05/16/19 Estradiol (Estradiol Tablet) 0.5 Mg Tablet, 0.25 MG PO HS, TAB TAKES 1/2 (0.5MG) TABLET 05/16/19 Cyclobenzaprine HCl (Cyclobenzaprine HCl) 5 Mg Tablet, 5 MG PO HS PRN for MUSCLE SPASMS, TAB 05/16/19 Levothyroxine Sodium (Levothyroxine Sodium) 50 Mcg Tablet, 50 MCG PO 0200, TAB 05/16/19 Lorazepam (Lorazepam) 1 Mg Tablet, 0.5 MG PO DAILY PRN for ANXIETY, TAB TAKES 1/2 (1MG) TABLET 05/16/19 Bupropion HCl (Bupropion Xl) 150 Mg Tab.er.24h, 150 MG PO HS, TAB 05/15/19 Apixaban (Eliquis) 5 Mg Tablet, 5 MG PO BID, TAB 05/15/19 Discontinued Reported Medications Celecoxib (Celebrex) 200 Mg Capsule, 200 MG PO DAILY, CAP 05/16/19 Levothyroxine Sodium (Levothyroxine Sodium) 100 Mcg Tablet 05/15/19 Cyclobenzaprine HCl (Cyclobenzaprine HCl) 10 Mg Tablet 05/15/19 Objective Exam Constitutional: [] HEENT: [] Neck: [] Cardiovascular: [] Respiratory: [] Gastrointestinal: [] Genitourinary: [] Skin: [] Back/Spine: [] Extremities: [Her dressing is intact left leg. Tenderness and negative Homans. She is able to plantar and dorsiflex foot and ankle without any weakness or pain. Normal sensation in the foot and toes with good cap refill. Good pulses. Equal position in the legs.] Neurologic: [] Psychiatric: [] Hematologic/lymphatic/immunologic: [] Vital Signs Vital Signs Date Time Temp Pulse Resp B/P (MAP) Pulse Ox O2 Delivery O2 Flow Rate FiO2 05/17/19 08:00 100 Room Air 05/17/19 07:00 102 05/17/19 04:33 97.2 87 20 134/79 (97) 100 Nasal Cannula 2.00 05/17/19 01:00 99 05/17/19 00:00 98.9 91 18 137/81 (99) 99 Nasal Cannula 2.00 05/16/19 20:15 Room Air 05/16/19 19:40 98.7 106 18 124/78 (93) 97 Nasal Cannula 3.00 05/16/19 19:00 108 05/16/19 16:00 97.4 104 18 135/81 (99) 99 Nasal Cannula 3.00 05/16/19 15:20 Nasal Cannula 3 05/16/19 15:10 98.5 16 97 Nasal Cannula 3 05/16/19 15:00 16 97 Nasal Cannula 3 05/16/19 14:50 11 98 Nasal Cannula 3 05/16/19 14:50 OxyMask 5 05/16/19 14:40 16 100 OxyMask 5 05/16/19 14:35 OxyMask 5 05/16/19 14:30 16 100 OxyMask 10 05/16/19 14:20 OxyMask 10 05/16/19 14:20 16 64 OxyMask 10 05/16/19 14:10 16 96 OxyMask 10 05/16/19 14:04 97.5 16 97 OxyMask 10 05/16/19 14:04 OxyMask 10 05/16/19 12:00 99.3 112 20 133/63 (86) 90 Room Air I & O 05/17/19 07:00 Intake Total 3482.6 ml Output Total 2525 ml Balance 957.6 ml Lab Results Laboratory Tests 05/16/19 10:35: Activated Partial Thromboplast Time 52H 05/17/19 05:44: White Blood Count 7.3, Red Blood Count 3.05L, Hemoglobin 9.7L, Hematocrit 30L, Mean Corpuscular Volume 98, Mean Corpuscular Hemoglobin 32, Mean Corpuscular Hemoglobin Concent 33, Red Cell Distribution Width 12.0, Platelet Count 186, Mean Platelet Volume 11.3H, Neutrophils (%) (Auto) 87H, Lymphocytes (%) (Auto) 6L, Monocytes (%) (Auto) 7, Eosinophils (%) (Auto) 1, Basophils (%) (Auto) 0, Neutrophils # (Auto) 6.3, Lymphocytes # (Auto) 0.4L, Monocytes # (Auto) 0.5, Eosinophils # (Auto) 0.1, Basophils # (Auto) 0.0, Sodium Level 140, Potassium Level 3.8, Chloride Level 107, Carbon Dioxide Level 22, Anion Gap 11, Blood Urea Nitrogen 9, Creatinine 0.78, Estimat Glomerular Filtration Rate > 60, BUN/Creatinine Ratio 12, Glucose Level 108H, Calcium Level 8.1L, Corrected Calcium 8.8, Total Bilirubin 0.5, Aspartate Amino Transf (AST/SGOT) 317H, Alanine Aminotransferase (ALT/SGPT) 377H, Alkaline Phosphatase 245H, Total Protein 5.6L, Albumin 3.1L Assessment and Plan Assessment One-day status post cemented bipolar hemiarthroplasty left hip Problem List Unchanged Plan Plancontinue out of bed to chair as tolerated. Walker ambulation weightbearing as tolerated on the left. Was reviewing her meds and noted that she was given Ancef 2 g IV postop at 1999. She was supposed to get 3 doses postop. Her second dose would've been at 4 o'clock this morning. I spoke with her nurse and we'll go ahead and give her Ancef 2 g now and then another 2 g in 8 hours. Final Diagonsis Status post cemented bipolar hemiarthroplasty left hip for displaced left femoral neck fracture Level of the visit: Level 3 Clinical Quality Measures DVT/VTE Risk/Contraindication: Risk Factor Score Per Nursin RFS Level Per Nursing on Admit: 4+=Very High JENNY CARRENO MD May 17, 2019 09:30
--- NOTE | 2019-05-17 09:45 | Occ Therapy Progress Note ---
Therapy Progress Note OT order received, chart reviewed. Went to assess pt. Pt. in midst of sitting up with PT. PT verbalizes that pt.is having pain and slightly "out of it" from medication. Recommended for OT to come back later. Will attempt back as time allows. 1, visit 0840 DANAE IBRAHIM OT May 17, 2019 09:45
[2019-05-17] MEDS: ceFAZolin 2 GM/50 ML NS 50 ML IV SCH ×2 (09:56→17:41)
--- NOTE | 2019-05-17 09:57 | Physical Therapy Evaluation ---
PT Evaluation-General Medical Diagnosis Admission Date May 15, 2019 at 20:00 Medical Diagnosis: left hip fracture Onset Date: May 15, 2019 Therapy Diagnosis Therapy Diagnosis: debility/weakness Height/Weight Height (Feet): 5 Height (Inches): 8.00 Weight (Pounds): 160 Weight (Ounces): 0.3 Precautions Precautions/Isolations: Fall Prevention, Standard Precautions Weight Bear Status Right Lower Extremity: Right Full Weight Bearing Left Lower Extremity: Left Weight Bearing/Tolerated Referral Physician: Alyse Reason for Referral: Evaluation/Treatment Medical History Pertinent Medical History: Hypothroidism Additional Medical History PE Current History EMS secondary to fall down several steps Reviewed History: Yes Social History Home: Single Level Current Living Status: Spouse Prior/Core FIM Prior Level of Function Therapy Code Descriptions/Definitions Functional [place] Measure: 0=Not Assessed/NA 4=Minimal Assistance 1=Total Assistance 5=Supervision or Setup 2=Maximal Assistance 6=Modified [place] 3=Moderate Assistance 7=Complete [place] Therapy Quality Codes: 6 Independent with activity with or without an assistive device 5 Patient requires set up or clean up by helper. Patient completes activity by themselves 4 Supervision or touching assist (CGA). [place] provide cues , steadying assist 3 The helper provides less than half the effort to complete the activity 2 The helper provides more than half the effort to complete the activity 1 Dependent. The helper does all the effort to complete an activity 7 Patient refused to complete or attempt activity 9 The patient did not perform the activity before the current illness or injury 88 Not attempted due to Medical conditions or safety concerns Functional Abilities and Goals: Independent: Patient completed the activities by him/herself, with or without an assistive device, with no assistance from a helper. Needed Some Help: Patient needed partial assistance from another person to complete activities. Dependent: A helper completed the activities for the patient. Unknown: Not Applicable: Bed Mobility: 7 Transfers (B,C,W/C) (FIM): 7 Gait: 7 Stairs: 7 Indoor Mobility (Ambulation): Independent Stairs: Independent Prior Devices Use: None PT Evaluation-Current Subjective Patient requests IV pain medication. RN issued Pain Numeric Pain Scale: 10-Worst Possible Pain Location: Left Location Body Site: Hip Pain Description: Acute Objective Patient Orientation: Listless, Normal For Age Problem Solving: Fair Attachments: Rodriguez Catheter, IV ROM/Strength ROM Lower Extremities left hip protocol/right LE WFL Strength Lower Extremities right LE 4/5 grossly/left LE 3-/5 grossly Integumentary/Posture Integumentary refer to nursing notes Bladder Incontinence: Rodriguez Cath Posture WFL Neuromuscular (Tone, Coordination, Reflexes) grossly intact Sensory Vision: Functional Hearing: Functional Sensation Right Lower Extremit: Intact Sensation Left Lower Extremity: Intact Transfers Therapy Code Descriptions/Definitions Functional [place] Measure: 0=Not Assessed/NA 4=Minimal Assistance 1=Total Assistance 5=Supervision or Setup 2=Maximal Assistance 6=Modified [place] 3=Moderate Assistance 7=Complete [place] Transfers (B, C, W/C) (FIM): 4 Scootin Supine to/from Sit: 4 due to IV pain medication, patient unable to safely perform sit to stand and ambulation at this time. Gait Mode of Locomotion: Walk Anticipated Mode of Locomotion: Walk Balance Sitting Static: Normal Sitting Dynamic: Normal Assessment/Needs 68 y.o. female, will benefit from skilled PT to address functional strength and mobility to improve current LOF to safely return to home with spouse at maximum LOF. Patient is currently limited due to pain and pain medication tolerance. Rehab Potential: Good PT [facility] Goals Retirement Goals PT Retirement Goals Time Frame: May 26, 2019 Transfers (B,C,W/C) (FIM): 6 Gait (FIM): 6 Gait distance (FIM): 3=150 ft Distance: 150' Gait Level of Assist: 6 Gait Assistive Device: FWW PT Plan Problem List Problem List: Activity Tolerance, Functional Strength, Balance, Gait, Transfer, Bed Mobility Treatment/Plan Treatment Plan: Continue Plan of Care Treatment Plan: Bed Mobility, Education, Functional Activity Cecy, Functional Strength, Gait, Safety, Therapeutic Exercise, Transfers Treatment Duration: May 26, 2019 Frequency: 11 times per week Estimated Hrs Per Day: .5 hour per day Patient and/or Family Agrees t: Yes Safety Risks/Education Patient Education: Safety Issues Teaching Recipient: Patient Teaching Methods: Discussion Response to Teaching: Verbalize Understanding Discharge Recommendations Therapy D/C Recommendations: Home w/ Family Support Time/GCodes Time In: 830 Time Out: 850 Total Billed Treatment Time: 20 Total Billed Treatment 1 visit EVModC 20 min IVETTE LITTLE PT May 17, 2019 09:56
--- NOTE | 2019-05-17 11:21 | Physical Therapy Daily Note ---
PT Daily Note-Current Subjective Patient just completed eating in bed and agrees to up in chair. Patient rates left hip pain 9/10 with meds issued. Pain Numeric Pain Scale: 9 Location: Left Location Body Site: Hip Pain Description: Acute Mental Status Patient Orientation: Normal For Age Attachments: Rodrigeuz Catheter, IV Transfers Therapy Code Descriptions/Definitions Functional [place] Measure: 0=Not Assessed/NA 4=Minimal Assistance 1=Total Assistance 5=Supervision or Setup 2=Maximal Assistance 6=Modified [place] 3=Moderate Assistance 7=Complete [place] Therapy Quality Codes: 6 Independent with activity with or without an assistive device 5 Patient requires set up or clean up by helper. Patient completes activity by themselves 4 Supervision or touching assist (CGA). [place] provide cues , steadying assist 3 The helper provides less than half the effort to complete the activity 2 The helper provides more than half the effort to complete the activity 1 Dependent. The helper does all the effort to complete an activity 7 Patient refused to complete or attempt activity 9 The patient did not perform the activity before the current illness or injury 88 Not attempted due to Medical conditions or safety concerns Transfers (B, C, W/C) (FIM): 4 Scootin Supine to/from Sit: 4 Sit to/from Stand: 4 Bed to/from Chair: 4 Patient requires much time to complete all functional tasks and requires encouragement to actively complete. Weight Bearing Right Lower Extremity: Right Full Weight Bearing Left Lower Extremity: Left Weight Bearing/Tolerated Exercises Supine Ex: Ankle pumps, Quad Set Supine Reps: 12 Seated Therapy Exercises: Long arc quads Seated Reps: 10 Assessment Patient is up in hip chair with needs met. Patient appears to have difficulty with pain control at this time and will hold her breath causing dizziness. Education with patient on deep breathing to prevent negative side effects. PT Skilled Nursing Goals [employer] Clerk Goals PT Skilled Nursing Goals Time Frame: May 26, 2019 Transfers (B,C,W/C) (FIM): 6 Gait (FIM): 6 Gait distance (FIM): 3=150 ft Distance: 150' Gait Level of Assist: 6 Gait Assistive Device: FWW PT Plan Treatment/Plan Treatment Plan: Continue Plan of Care Treatment Plan: Bed Mobility, Education, Functional Activity Cecy, Functional Strength, Gait, Safety, Therapeutic Exercise, Transfers Treatment Duration: May 26, 2019 Frequency: 11 times per week Estimated Hrs Per Day: .5 hour per day Patient and/or Family Agrees t: Yes Time/GCodes Time In: 1042 Time Out: 1105 Total Billed Treatment Time: 23 Total Billed Treatment 1 visit FA x 2 23 min IVETTE LITTLE PT May 17, 2019 11:21
[2019-05-17 12:00] VITALS: BP 125/74
--- NOTE | 2019-05-17 12:46 | Progress Note - Hospitalist ---
Subjective HPI/CC On Admission Date Seen by Provider: May 17, 2019 Time Seen by Provider: 08:00 fall Subjective/Events-last exam She continues to have pain this morning. She has not been out of bed but is willing to work with PT today. She was able to tolerate some clear liquids last night and is hungry this morning. She has not had a bowel movement yet. She denies nausea and vomiting. She denies fevers, chest pain, dyspnea, abdominal pain. Objective Exam Vital Signs Vital Signs Date Time Temp Pulse Resp B/P (MAP) Pulse Ox O2 Delivery O2 Flow Rate FiO2 05/17/19 08:00 98.6 106 18 121/73 (89) 92 Nasal Cannula 3.00 Capillary Refill : Less Than 3 SecondsLess Than 3 Seconds General Appearance: No Apparent Distress, WD/WN HEENT: PERRL/EOMI, Pharynx Normal Respiratory: Lungs Clear, Normal Breath Sounds, No Respiratory Distress; No Crackles, No Wheezing Cardiovascular: Regular Rate, Rhythm, No Edema, No Murmur Gastrointestinal: Normal Bowel Sounds, Non Tender, Soft Extremity: No Non Tender; No Pedal Edema Neurologic/Psychiatric: Alert; No Disoriented Skin: Normal Color, Warm/Dry Lymphatic: No Adenopathy Results/Procedures Lab Laboratory Tests 05/17/19 05:44 Patient resulted labs reviewed. Imaging: Reviewed Imaging Report Assessment/Plan Assessment and Plan Assess & Plan/Chief Complaint Left femoral neck fracture Fall down stairs -Underwent hip surgery with Dr. Cullen 05/16 -Pain regimen ordered -Tolerating diet -Out of bed to chair and up with PT today -Encouraged incentive spirometry use -Adding bowel regimen -Will likely require rehab prior to going home, SW assistance appreciated DVT/PE -Continue Eliquis Hepatocellular hepatitis -AST trending down, ALT and ALP trending up -T bili normal -CK elevated -Likely muscle related due to fall, expect to trend downward -Will check RUQ US today for further evaluation Hypothyroidism -Continue levothyroxine Diagnosis/Problems Diagnosis/Problems (1) Closed left hip fracture Status: Acute (2) History of pulmonary embolus (PE) Status: Acute (3) Hepatocellular dysfunction Status: Acute (4) Hypothyroidism Status: Acute Clinical Quality Measures DVT/VTE Risk/Contraindication: Risk Factor Score Per Nursin RFS Level Per Nursing on Admit: 4+=Very High JEAN PAUL AARON MD May 17, 2019 12:46
--- NOTE | 2019-05-17 13:09 | Anesthesia-General Post-Op ---
General Patient Condition Mental Status/LOC: Same as Preop Cardiovascular: Satisfactory Nausea/Vomiting: Absent Respiratory: Satisfactory Pain: Controlled Complications: Absent Post Op Complications Complications None Follow Up Care/Instructions Patient Instructions None needed. Anesthesia/Patient Condition Patient Condition Patient is doing well, no complaints, stable vital signs, no apparent adverse anesthesia problems. No complications reported per nursing. D/C home per [facility] Criteria: PEDRO Gustafson CRNA May 17, 2019 13:09
--- NOTE | 2019-05-17 13:12 | Cardiology Progress Note ---
Subjective Date Seen by Provider: May 17, 2019 Time Seen by Provider: 13:11 Subjective/Events-last exam Patient is laying down in bed, was able to get out of bed today, still having pain. No chest pain. Review of Systems General: No Chills, No Night Sweats, No Fatigue, No Malaise, No Appetite, No Other HEENT: No Head Aches, No Visual Changes, No Eye Pain, No Ear Pain, No Dysphasia, No Sinus Congestion, No Post Nasal Drip, No Sore Throat, No Other Pulmonary: No Dyspnea, No Cough, No Pleuritic Chest Pain, No Other Cardiovascular: No: Chest Pain, Palpitations, Orthopnea, Paroxysmal Noc. Dyspnea, Edema, Lt Headedness, Other Objective-Cardiology Exam Last Set of Vital Signs Vital Signs Capillary Refill : Less Than 3 SecondsLess Than 3 Seconds I&O Intake and Output 05/17/19 00:00 Intake Total 3382.6 ml Output Total 1875 ml Balance 1507.6 ml Intake Oral 480 ml IV Total 2902.6 ml Output Urine Total 1675 ml Estimated Blood Loss 200 ml Daily Weight Change No General: Alert, Oriented X3, Cooperative HEENT: Atraumatic, PERRLA Neck: Supple, No JVD, No Thyromegaly Lungs: Clear to Auscultation, Normal Air Movement Heart: Regular Rate, Normal S1, Normal S2, No Murmurs Abdomen: Normal Bowel Sounds, Soft, No Tenderness, No Hepatosplenomegaly, No Masses Extremities: No Clubbing, No Cyanosis, No Edema, Normal Pulses, No Tenderness/Swelling Skin: No Rashes, No Breakdown, No Significant Lesion Neuro: Normal Gait, Normal Speech, Strength at 5/5 X4 Ext, Normal Tone, Sensation Intact Psych/Mental Status: Mental Status NL, Mood NL Results Lab Laboratory Tests 05/17/19 05:44 A/P-Cardiology Admission Diagnosis left hip fracture recent PE Hypothyroidism Headache Assessment/Plan Left hip fracture, postoperative day number 1, recovering well. Continue to monitor History of recent PE, unprovoked, occurring approx 6 weeks ago. Back on Eliquis, will discontinue Lovenox and continue to monitor Hypothyroidism- follows with tube man in [place]. Headache- CT head done in ER negative Elevated LFT's, persistent elevation, managed by primary care team Celiac disease Hx of vocal cord paralysis Clinical Quality Measures DVT/VTE Risk/Contraindication: Risk Factor Score Per Nursin RFS Level Per Nursing on Admit: 4+=Very High DEE ARMENTA MD May 17, 2019 13:12
--- NOTE | 2019-05-17 13:46 | Occupational Therapy Eval ---
OT Evaluation-General/PLF Medical Diagnosis Admission Date May 15, 2019 at 20:00 Medical Diagnosis: left hip fracture/bipolar hemiarthroplasty Onset Date: May 15, 2019 Therapy Diagnosis Therapy Diagnosis: Decreased ADL skills Height/Weight Height (Feet): 5 Height (Inches): 8.00 Weight (Pounds): 160 Weight (Ounces): 0.3 Precautions Precautions/Isolations: Fall Prevention, Standard Precautions Safety Interventions: Reorient-PRN Weight Bear Status Weight Bearing Restriction: Weight Bearing/Tolerated WBS (Ord/Comment): Hip precautions Referral Physician: Alyse Referral Reason: Activity Tolerance, Self Care, Evaluation/Treatment[facility] Medical History Pertinent Medical History: Hypothroidism Additional Medical History Hypothyroidism Current History Pt. was visiting friend in [place]. Pt. is from [place], [place]. Pt fell at friends [place] and sustained hip fx. Surgical repair. Reviewed History: Yes Social History Home: Single Level Current Living Status: Spouse Entry Into Home: Stairs With Railing Steps Into Home: 2 ADL-Prior Level of Function Therapy Code Descriptions/Definitions Functional [place] Measure: 0=Not Assessed/NA 4=Minimal Assistance 1=Total Assistance 5=Supervision or Setup 2=Maximal Assistance 6=Modified [place] 3=Moderate Assistance 7=Complete [place] Therapy Quality Codes: 6 Independent with activity with or without an assistive device 5 Patient requires set up or clean up by helper. Patient completes activity by themselves 4 Supervision or touching assist (CGA). [place] provide cues , steadying assist 3 The helper provides less than half the effort to complete the activity 2 The helper provides more than half the effort to complete the activity 1 Dependent. The helper does all the effort to complete an activity 7 Patient refused to complete or attempt activity 9 The patient did not perform the activity before the current illness or injury 88 Not attempted due to Medical conditions or safety concerns Functional Abilities and Goals: Independent: Patient completed the activities by him/herself, with or without an assistive device, with no assistance from a helper. Needed Some Help: Patient needed partial assistance from another person to complete activities. Dependent: A helper completed the activities for the patient. Unknown: Not Applicable: ADL PLOF Comments Pt. states that she was independent with daily skills previous to this hospitalization. Self Care: Independent Functional Cognition: Independent DME/Equipment: Shower DME/Equipment Comments Pt. reports that she has a walker that was her spouse's. Does not use it however. Drive Self: Yes OT Current Status Subjective Pt. reports 10/10 pain. Has had pain meds. Appearance Pt. is up in hip chair. Requests to return to bed. Mental Status/Objective Patient Orientation: Unable to Assess Multiple cues given during transfer due to pt's pain level and inability to concentrate. Attachments: Rodriguez Catheter, IV Current Upper Extremity ROM WFL ADL-Treatment Therapy Code Descriptions/Definitions Functional [place] Measure: 0=Not Assessed/NA 4=Minimal Assistance 1=Total Assistance 5=Supervision or Setup 2=Maximal Assistance 6=Modified [place] 3=Moderate Assistance 7=Complete [place] Therapy Quality Codes: 6 Independent with activity with or without an assistive device 5 Patient requires set up or clean up by helper. Patient completes activity by themselves 4 Supervision or touching assist (CGA). [place] provide cues , steadying assist 3 The helper provides less than half the effort to complete the activity 2 The helper provides more than half the effort to complete the activity 1 Dependent. The helper does all the effort to complete an activity 7 Patient refused to complete or attempt activity 9 The patient did not perform the activity before the current illness or injury 88 Not attempted due to Medical conditions or safety concerns Lower Body Dressing (FIM): 1 (Hip precautions) Transfers (B, C, W/C) (FIM): 1 (Max assist sit-stand. Max transfer to bed. Max x 2 for sit-supine.) Pt. up in hip chair. Becomes very anxious and verbalizes pain with transfer to bed. Increased time required overall to perform transfer. Education OT Patient Education: Correct positioning, Disease process, Progress toward Goal/Update tx plan, Purpose of tx/functional activities, Reviewed precautions, Rehab process, Transfer techniques Teaching Recipient: Patient, Family Teaching Methods: Demonstration, Discussion Response to Teaching: Verbalize Understanding, Reinforcement Needed OT Short Term Goals Short Term Goals 1=Demonstrate adherence to instructed precautions during ADL tasks. 2=Patient will verbalize/demonstrate understanding of assistive devices/modifications for ADL. 3=Patient will improve strength/tolerance for activity to enable patient to perform ADL's. OT Machine Feed Operator Goals Machine Feed Operator Goals Time Frame: May 31, 2019 Eating (FIM): 6 Grooming(FIM): 6 Bathing(FIM): 5 Upper Body Dressing(FIM): 5 Lower Body Dressing(FIM): 4 Toileting(FIM): 5 Transfers (B,C,W/C) (FIM): 5 Toilet/Commode Transfer(FIM): 5 Additional Goals: 1-Demonstrate ADL Tasks, 2-Verbalize Understanding, 3- ImproveStrength/Cecy 1=Demonstrate adherence to instructed precautions during ADL tasks. 2=Patient will verbalize/demonstrate understanding of assistive devices/modifications for ADL. 3=Patient will improve strength/tolerance for activity to enable patient to perform ADL's. OT Education/Plan Problem List/Assessment Assessment: Decreased Activ Tolerance, Dependent Transfers, Impaired Bed Mobility, Impaired Cognition, Impaired Funct Balance, Impaired I ADL's, Impaired Self-Care Skills Discharge Recommendations Plan/Recommendations: Continue POC Therapy D/C Recommendations: Acute Rehab Equpiment Recommendations-D/C: Bath Chair, Hip Kit Barriers to Progress Pain Treatment Plan/Plan of Care Treatment,Training & Education: Yes Patient would benefit from OT for education, treatment and training to promote independence in ADL's, mobility, safety and/or upper extremity function for ADL's. Plan of Care: ADL Retraining, Functional Mobility, UE Funct Exercise/Act Treatment Duration: May 24, 2019 Frequency: 5 times per week Estimated Hrs Per Day: .5 hour per day Agreement: Yes Rehab Potential: Fair Time/GCodes Start Time: 11:50 Stop Time: 12:25 Total Time Billed (hr/min): 35 Billed Treatment Time 1, EVH x 15minutes, FA x 20minutes DANAE IBRAHIM OT May 17, 2019 13:46
[2019-05-17] MEDS ORDERED: POLYETHYLENE GLYCOL 17 GM (MIRALAX) PACK PO NR (14:09)
[2019-05-17] MEDS ORDERED: BISACODYL 5 MG (DULCOLAX) TABLET PO PRN (14:15)
--- NOTE | 2019-05-17 15:09 | NUR ---
CM/SS spoke with the patient. She is from [facility] and would like to get back there for rehab on her hip. She gave the name of [facility] (SNF). Contacted them and sent over referral information. Called Dr. Gross office at [facility] and requested a copy of her insurance cards be faxed.
--- NOTE | 2019-05-17 15:51 | Diagnostic Imaging Report ---
PROCEDURE: US Hepatic (Liver). TECHNIQUE: Multiple real-time grayscale images were obtained over the right upper quadrant in various projections. INDICATION: Elevated liver function tests. FINDINGS: Liver is normal in size at 14 cm. No discrete liver mass is identified. The portal vein is patent and shows normal direction of flow. Gallbladder is surgically absent. No biliary ductal dilatation is seen. The visualized pancreas is unremarkable. The pancreatic tail is obscured by bowel gas. Right kidney is normal in size. No calculus or hydronephrosis is seen. There is no ascites. IMPRESSION: Status post cholecystectomy. No acute feature is detected. Dictated by: Dictated on workstation # [id number]
[2019-05-17 16:00] VITALS: BP 118/73
[2019-05-17 20:00] VITALS: BP 124/76
[2019-05-17] MEDS: buPROPion SR 150 MG (WELLBUTRIN SR) TAB PO SCH (20:25)
[2019-05-17] MEDS: NORTRIPTYLINE 25 MG (PAMELOR) CAP PO SCH (20:25)
[2019-05-17] MEDS: POLYETHYLENE GLYCOL 17 GM (MIRALAX) PACK PO SCH (20:26)
[2019-05-18] VITALS: BP 137/60
[2019-05-18] MEDS: LEVOTHYROXINE 50 MCG (LEVOTHROID) TAB PO SCH (01:33)
[2019-05-18] MEDS: HYDROcodone/APAP 5 MG/325 MG (LORTAB) TAB PO PRN ×5 (01:33→22:58)
[2019-05-18 04:00] VITALS: BP 119/53
[2019-05-18] MEDS: LACTATED RINGERS 1,000 ML IV SCH ×2 (04:57→17:36)
[2019-05-18 05:56] LABS: BASOPHILS % (AUTO) 0 % (0-10); EOSINOPHILS # (AUTO) 0.6 10^3/uL (0.0-0.3); EOSINOPHILS % (AUTO) 12 % (0-10); HEMATOCRIT 23 % (35-52); HEMOGLOBIN 7.5 G/DL (11.5-16.0); LYMPHOCYTES # (AUTO) 0.6 X 10^3 (1.0-4.0); LYMPHOCYTES % (AUTO) 13 % (12-44); MEAN CORPUSCULAR HEMOGLOBIN 32 PG (25-34); MEAN CORPUSCULAR HGB CONC 32 G/DL (32-36); MEAN CORPUSCULAR VOLUME 98 FL (80-99); MEAN PLATELET VOLUME 10.3 FL (7.4-10.4); MONOCYTES # (AUTO) 0.5 X 10^3 (0.0-1.0); MONOCYTES % (AUTO) 10 % (0-12); NEUTROPHILS # (AUTO) 3.2 X 10^3 (1.8-7.8); NEUTROPHILS % (AUTO) 65 % (42-75); PLATELET COUNT 145 10^3/uL (130-400); RED CELL DISTRIBUTION WIDTH 12.2 % (10.0-14.5); WHITE BLOOD COUNT 4.9 10^3/uL (4.3-11.0)
[2019-05-18 06:13] LABS: INR 1.1 (0.8-1.4); PROTHROMBIN TIME PATIENT 14.4 SEC (12.2-14.7)
[2019-05-18 06:19] LABS: ALANINE AMINOTRANSFERASE 401 U/L (0-55); ALBUMIN 2.8 GM/DL (3.2-4.5); ALKALINE PHOSPHATASE 227 U/L (40-136); BILIRUBIN,TOTAL 0.4 MG/DL (0.1-1.0); BUN/CREATININE RATIO 12; CALCIUM 7.9 MG/DL (8.5-10.1); CARBON DIOXIDE 26 MMOL/L (21-32); CHLORIDE 107 MMOL/L (98-107); CREATININE SERUM 0.77 MG/DL (0.60-1.30); GFR ESTIMATED > 60; GLUCOSE 116 MG/DL (70-105); POTASSIUM 3.9 MMOL/L (3.6-5.0); SODIUM 139 MMOL/L (135-145); TOTAL PROTEIN 4.7 GM/DL (6.4-8.2)
[2019-05-18 08:00] VITALS: BP 108/70
[2019-05-18] MEDS: APIXABAN 5 MG (ELIQUIS) TABLET PO SCH ×2 (09:45→21:08)
[2019-05-18] MEDS: POLYETHYLENE GLYCOL 17 GM (MIRALAX) PACK PO SCH ×2 (09:46→21:09)
--- NOTE | 2019-05-18 09:50 | Progress Note - Ortho ---
Progress Note Subjective Date of Exam 05/18/19 Chief Complaint POD#2 cemented bipolar hemiarthroplasty left hip HPI/Events since last exam The patient is up sitting in the chair when I evaluated her. Her dressing is intact with a small amount of what looks like sero-sanguinous drainage on the dressing. This is unchanged from yesterday. She denies any pain radiating down the legs, numbness or tingling. She did state that she has a bloody nose that started right before I saw her. Review of Systems Reviewed, no additions or changes Allergies: Coded Allergies: No Known Drug Allergies (Unverified , 05/15/19) Home Meds Reported Medications Nortriptyline HCl (Nortriptyline HCl) 25 Mg Capsule, 25 MG PO HS, CAP 05/16/19 Multivitamin (Multivitamins) 1 Each Tablet, 1 TAB PO DAILY, TAB 05/16/19 Cyanocobalamin (Vitamin B-12) (Vitamin B-12) 1,000 Mcg Tablet, 1000 MCG PO DAILY, TAB 05/16/19 Loratadine (Claritin) 10 Mg Tablet, 10 MG PO DAILY PRN for ALLERGIES, TAB 05/16/19 Estradiol (Estradiol Tablet) 0.5 Mg Tablet, 0.25 MG PO HS, TAB TAKES 1/2 (0.5MG) TABLET 05/16/19 Cyclobenzaprine HCl (Cyclobenzaprine HCl) 5 Mg Tablet, 5 MG PO HS PRN for MUSCLE SPASMS, TAB 05/16/19 Levothyroxine Sodium (Levothyroxine Sodium) 50 Mcg Tablet, 50 MCG PO 0200, TAB 05/16/19 Lorazepam (Lorazepam) 1 Mg Tablet, 0.5 MG PO DAILY PRN for ANXIETY, TAB TAKES 1/2 (1MG) TABLET 05/16/19 Bupropion HCl (Bupropion Xl) 150 Mg Tab.er.24h, 150 MG PO HS, TAB 05/15/19 Apixaban (Eliquis) 5 Mg Tablet, 5 MG PO BID, TAB 05/15/19 Discontinued Reported Medications Celecoxib (Celebrex) 200 Mg Capsule, 200 MG PO DAILY, CAP 05/16/19 Levothyroxine Sodium (Levothyroxine Sodium) 100 Mcg Tablet 05/15/19 Cyclobenzaprine HCl (Cyclobenzaprine HCl) 10 Mg Tablet 05/15/19 Objective Exam Constitutional: [] HEENT: [] Neck: [] Cardiovascular: [] Respiratory: [] Gastrointestinal: [] Genitourinary: [] Skin: [] Back/Spine: [] Extremities: Dressing is intact left hip with a small amount of serosanguineous drainage which is unchanged from yesterday's evaluation. No calf tenderness and negative Homans. Neurovascularly is intact to the lower extremities. Equal pulses. No weakness on dorsiflexion or plantarflexion of the foot and ankle.[] Neurologic: [] Psychiatric: [] Hematologic/lymphatic/immunologic: [] Vital Signs Vital Signs Date Time Temp Pulse Resp B/P (MAP) Pulse Ox O2 Delivery O2 Flow Rate FiO2 05/18/19 08:31 Nasal Cannula 2.00 05/18/19 08:00 100 Nasal Cannula 2.00 05/18/19 07:00 102 05/18/19 04:00 98.8 105 18 119/53 (75) 96 Nasal Cannula 2.00 05/18/19 01:00 111 05/18/19 00:00 99.8 118 20 137/60 (85) 95 Nasal Cannula 2.00 05/17/19 23:10 Nasal Cannula 2.00 05/17/19 20:45 Nasal Cannula 2.00 05/17/19 20:00 99.0 125 18 124/76 (92) 94 Nasal Cannula 2.00 05/17/19 19:00 124 05/17/19 16:00 100.3 118 20 118/73 (88) 94 Nasal Cannula 2.00 05/17/19 13:00 102 05/17/19 12:00 98.6 77 20 125/74 (91) 90 Nasal Cannula 2.00 I & O 05/18/19 07:00 Intake Total 3130 ml Output Total 2050 ml Balance 1080 ml Lab Results Laboratory Tests 05/18/19 05:40: White Blood Count 4.9, Red Blood Count 2.37L, Hemoglobin 7.5#L, Hematocrit 23L, Mean Corpuscular Volume 98, Mean Corpuscular Hemoglobin 32, Mean Corpuscular Hemoglobin Concent 32, Red Cell Distribution Width 12.2, Platelet Count 145, Mean Platelet Volume 10.3, Neutrophils (%) (Auto) 65, Lymphocytes (%) (Auto) 13, Monocytes (%) (Auto) 10, Eosinophils (%) (Auto) 12H, Basophils (%) (Auto) 0, Neutrophils # (Auto) 3.2, Lymphocytes # (Auto) 0.6L, Monocytes # (Auto) 0.5, Eosinophils # (Auto) 0.6H, Basophils # (Auto) 0.0, Prothrombin Time 14.4, INR Comment 1.1, Sodium Level 139, Potassium Level 3.9, Chloride Level 107, Carbon Dioxide Level 26, Anion Gap 6, Blood Urea Nitrogen 9, Creatinine 0.77, Estimat Glomerular Filtration Rate > 60, BUN/Creatinine Ratio 12, Glucose Level 116H, Calcium Level 7.9L, Corrected Calcium 8.9, Total Bilirubin 0.4, Aspartate Amino Transf (AST/SGOT) 438H, Alanine Aminotransferase (ALT/SGPT) 401H, Alkaline Phosphatase 227H, Total Creatine Kinase 823H, Total Protein 4.7L, Albumin 2.8L Microbiology 05/16/19 MRSA Screen - Final, Complete MRSA not isolated Assessment and Plan Assessment Status post cemented bipolar hemiarthroplasty left hip Problem List No change Plan Continue therapy, walker ambulation weightbearing as tolerated on the left. Dressing change when back to bed. I spoke with Dr. Prajapati and he would like to keep her through the weekend. Her hemoglobin is 7.9 and this probably drop a little bit with tomorrow's hemoglobin. She may require transfusion. Possible discharge to rehabilitation on Tuesday Final Diagonsis 2 days postop cemented bipolar hemiarthroplasty left hip Level of the visit: Level 3 Clinical Quality Measures DVT/VTE Risk/Contraindication: Risk Factor Score Per Nursin RFS Level Per Nursing on Admit: 4+=Very High JENNY CARRENO MD May 18, 2019 09:50
--- NOTE | 2019-05-18 10:19 | Cardiology Progress Note ---
Subjective Date Seen by Provider: May 18, 2019 Time Seen by Provider: 10:17 Subjective/Events-last exam patient is sitting in a chair, complaining of fatigue and loss of energy, no chest pain. Review of Systems General: No Chills, No Night Sweats; Fatigue; No Malaise, No Appetite, No Other HEENT: No Head Aches, No Visual Changes, No Eye Pain, No Ear Pain, No Dysphasi a, No Sinus Congestion, No Post Nasal Drip, No Sore Throat, No Other Pulmonary: No Dyspnea, No Cough, No Pleuritic Chest Pain, No Other Cardiovascular: No: Chest Pain, Palpitations, Orthopnea, Paroxysmal Noc. Dyspnea, Edema, Lt Headedness, Other Objective-Cardiology Exam Last Set of Vital Signs Vital Signs 05/18/19 05/18/19 05/18/19 05/18/19 04:00 07:00 08:00 08:31 Temp 98.8 Pulse 102 Resp 18 B/P (MAP) 119/53 (75) Pulse Ox 100 O2 Delivery Nasal Cannula O2 Flow Rate 2.00 Capillary Refill : Less Than 3 SecondsLess Than 3 Seconds I&O Intake and Output 05/18/19 00:00 Intake Total 2130 ml Output Total 2450 ml Balance -320 ml Intake Oral 1030 ml IV Total 1100 ml Output Urine Total 2450 ml General: Alert, Oriented X3, Cooperative HEENT: Atraumatic, PERRLA Neck: Supple, No JVD, No Thyromegaly Lungs: Clear to Auscultation, Normal Air Movement Heart: Regular Rate, Normal S1, Normal S2, No Murmurs Abdomen: Normal Bowel Sounds, Soft, No Tenderness, No Hepatosplenomegaly, No Masses Extremities: No Clubbing, No Cyanosis, No Edema, Normal Pulses, No Tenderness/Swelling Skin: No Rashes, No Breakdown, No Significant Lesion Neuro: Normal Gait, Normal Speech, Strength at 5/5 X4 Ext, Normal Tone, Sensation Intact Psych/Mental Status: Mental Status NL, Mood NL Results Lab Laboratory Tests 05/18/19 05:40 A/P-Cardiology Admission Diagnosis left hip fracture recent PE Hypothyroidism Headache Assessment/Plan Left hip fracture, postoperative day 2, recovering well. Continue to monitor Anemia, worsening today, complaining of fatigue and loss of energy, we'll continue on Eliquis and consider blood transfusion History of recent PE, unprovoked, occurring approx 6 weeks ago. Back on Eliquis, will discontinue Lovenox and continue to monitor Hypothyroidism- follows with supervisor nuclear medicine in [place]. Headache- CT head done in ER negative Elevated LFT's, persistent elevation, managed by primary care team Celiac disease Hx of vocal cord paralysis Clinical Quality Measures DVT/VTE Risk/Contraindication: Risk Factor Score Per Nursin RFS Level Per Nursing on Admit: 4+=Very High DEE ARMENTA MD May 18, 2019 10:19
--- NOTE | 2019-05-18 10:50 | NUR ---
THIS NURSE INFORMED DR AARON THAT DR ARMENTA ORDERED TO TRANSFUSE ONE UNIT OF PRC IF IT WAS OK WITH HIME, DR AARON INSTRUCTED NURSE TO REPEAT HG AT 1700 TODAY AND NOTIFY HIM OF RESULTS. THEN HE WILL DECIDE.
--- NOTE | 2019-05-18 11:04 | Physical Therapy Daily Note ---
PT Daily Note-Current Subjective Patient agrees to PT. Pain Numeric Pain Scale: 5-Moderate Pain Location: Left Location Body Site: Hip Pain Description: Acute Mental Status Patient Orientation: Normal For Age Attachments: Oxygen, Rodriguez Catheter, IV Transfers Therapy Code Descriptions/Definitions Functional [place] Measure: 0=Not Assessed/NA 4=Minimal Assistance 1=Total Assistance 5=Supervision or Setup 2=Maximal Assistance 6=Modified [place] 3=Moderate Assistance 7=Complete [place] Therapy Quality Codes: 6 Independent with activity with or without an assistive device 5 Patient requires set up or clean up by helper. Patient completes activity by themselves 4 Supervision or touching assist (CGA). [place] provide cues , steadying assist 3 The helper provides less than half the effort to complete the activity 2 The helper provides more than half the effort to complete the activity 1 Dependent. The helper does all the effort to complete an activity 7 Patient refused to complete or attempt activity 9 The patient did not perform the activity before the current illness or injury 88 Not attempted due to Medical conditions or safety concerns Transfers (B, C, W/C) (FIM): 4 Scootin Supine to/from Sit: 4 Sit to/from Stand: 4 Bed to/from Chair: 4 Weight Bearing Right Lower Extremity: Right Full Weight Bearing Left Lower Extremity: Left Weight Bearing/Tolerated Gait Training Gait (FIM): 1 Distance (FIM): 1=up to 49 ft Distance: 8' Gait Level of Assist: 4 Gait Persons Needed: 1 Gait Assistive Device: FWW antalgic/patient ceased ambulation due to dizziness Exercises Supine Ex: Ankle pumps, Quad Set, Heel Slides Supine Reps: 15 Seated Therapy Exercises: Long arc quads Seated Reps: 15 Assessment Patient Hgb is 7.3. Patient tolerates minimal activity due to dizziness and pain control. PT to increase activity as tolerated by patient. PT Awning Maker Goals Halfway Goals PT Halfway Goals Time Frame: May 26, 2019 Transfers (B,C,W/C) (FIM): 6 Gait (FIM): 6 Gait distance (FIM): 3=150 ft Distance: 150' Gait Level of Assist: 6 Gait Assistive Device: FWW PT Plan Treatment/Plan Treatment Plan: Continue Plan of Care Treatment Plan: Bed Mobility, Education, Functional Activity Cecy, Functional Strength, Gait, Safety, Therapeutic Exercise, Transfers Treatment Duration: May 26, 2019 Frequency: 11 times per week Estimated Hrs Per Day: .5 hour per day Patient and/or Family Agrees t: Yes Time/GCodes Time In: 820 Time Out: 846 Total Billed Treatment Time: 26 Total Billed Treatment 1 visit FA 13 min EX 13 min IVETTE LITTLE PT May 18, 2019 11:04
--- NOTE | 2019-05-18 11:14 | Progress Note - Hospitalist ---
Subjective HPI/CC On Admission Date Seen by Provider: May 18, 2019 Time Seen by Provider: 09:15 fall Subjective/Events-last exam She is up in her bedside chair. She reports that her left leg was spasming overnight. She continues to have some left hip pain. She denies any swelling or bruising. She denies right hip pain. She had a fever overnight. She denies dyspnea and cough. She denies dysuria. She denies abdominal pain, nausea, vomiting, and diarrhea. She is constipated. She denies any bleeding. Objective Exam Vital Signs Vital Signs Date Time Temp Pulse Resp B/P (MAP) Pulse Ox O2 Delivery O2 Flow Rate FiO2 05/18/19 08:31 Nasal Cannula 2.00 05/18/19 08:00 99.4 106 18 108/70 (83) 93 Capillary Refill : Less Than 3 SecondsLess Than 3 Seconds General Appearance: No Apparent Distress, WD/WN HEENT: PERRL/EOMI, Pharynx Normal Neck: Normal Inspection, Supple Respiratory: Lungs Clear, Normal Breath Sounds, No Respiratory Distress; No Crackles, No Decreased Breath Sounds, No Wheezing Cardiovascular: Regular Rate, Rhythm, No Edema, No Murmur Gastrointestinal: Normal Bowel Sounds, No Organomegaly, Non Tender, Soft; No Abnormal Bowel Sounds, No Distended, No Guarding Back: Normal Inspection Extremity: Normal Inspection, Non Tender, No Calf Tenderness, No Pedal Edema; No Inflammation, No Swelling Neurologic/Psychiatric: Alert, No Motor/Sensory Deficits; No Disoriented Skin: Normal Color, Warm/Dry Lymphatic: No Adenopathy Results/Procedures Lab Laboratory Tests 05/18/19 05:40 Patient resulted labs reviewed. Imaging: Reviewed Imaging Report Assessment/Plan Assessment and Plan Assess & Plan/Chief Complaint Left femoral neck fracture Fall down stairs -Underwent hip surgery with Dr. Cullen 05/16 -Pain regimen ordered -Tolerating diet -Out of bed to chair and up with PT today -Encouraged incentive spirometry use -Continue bowel regimen -Planning for [facility] in [facility] on discharge, SW assistance appreciated Acute blood loss anemia -Hemoglobin trending down, 7.5 this morning -Repeat H/H this afternoon, transfuse for Hgb <7 DVT/PE -Continue Eliquis Hepatocellular hepatitis -AST/ALT/ALP slightly worsened today -CK elevated -RUQ ultrasound normal -Hepatitis panel pending -Meds reviewed and no offended agents identified -Consider autoimmune evaluation if initial workup negative and LFTs remain elevated Eosinophilia -Elevated eosinophils on CBC today -Continue to monitor Hypothyroidism -Continue levothyroxine Diagnosis/Problems Diagnosis/Problems (1) Closed left hip fracture Status: Acute (2) History of pulmonary embolus (PE) Status: Acute (3) Hepatocellular dysfunction Status: Acute (4) Hypothyroidism Status: Chronic (5) Acute blood loss anemia Status: Acute (6) Eosinophilia Status: Acute Clinical Quality Measures DVT/VTE Risk/Contraindication: Risk Factor Score Per Nursin RFS Level Per Nursing on Admit: 4+=Very High JEAN PAUL AARON MD May 18, 2019 11:14
--- NOTE | 2019-05-18 11:24 | NUR ---
PATIENT HAD NOSE BLEED, DR AARON HERE AND AWARE, O2 DECREASED TO 1 LITER, WILL TITRATE OXYGEN, O2 SAT 94 PERCENT ON 1 LITER, GRAFF REMOVED WITHOUT DIFFICULTY, DRESSING CHANGED TO LEFT HIP, INCISION WITHOUT REDNESS. REAL INTACT. DRESSING DRY AND INTACT TO RIGHT FOREARM.
[2019-05-18 12:00] VITALS: BP 109/69
--- NOTE | 2019-05-18 12:37 | NUR ---
CM/SS [facility] (SNF) in [place] will accept the patient when she is ready to discharge. They will not be able to transport to facility or for any possible follow up appointments. Patient not discharging this day but possible for 05/21. Will keep the facility up to date.
--- NOTE | 2019-05-18 13:40 | Physical Therapy Daily Note ---
PT Daily Note-Current Subjective Patient agrees to PT. Pain Numeric Pain Scale: 5-Moderate Pain Location: Left Location Body Site: Hip Pain Description: Acute Mental Status Patient Orientation: Normal For Age Attachments: IV Transfers Therapy Code Descriptions/Definitions Functional [place] Measure: 0=Not Assessed/NA 4=Minimal Assistance 1=Total Assistance 5=Supervision or Setup 2=Maximal Assistance 6=Modified [place] 3=Moderate Assistance 7=Complete [place] Therapy Quality Codes: 6 Independent with activity with or without an assistive device 5 Patient requires set up or clean up by helper. Patient completes activity by themselves 4 Supervision or touching assist (CGA). [place] provide cues , steadying assist 3 The helper provides less than half the effort to complete the activity 2 The helper provides more than half the effort to complete the activity 1 Dependent. The helper does all the effort to complete an activity 7 Patient refused to complete or attempt activity 9 The patient did not perform the activity before the current illness or injury 88 Not attempted due to Medical conditions or safety concerns Transfers (B, C, W/C) (FIM): 4 Scootin Rollin Supine to/from Sit: 4 Sit to/from Stand: 5 Bed to/from Chair: 4 assist for left LE with bed mobility Weight Bearing Right Lower Extremity: Right Full Weight Bearing Left Lower Extremity: Left Weight Bearing/Tolerated Gait Training Gait (FIM): 1 Distance: 15', 30', 10' Gait Level of Assist: 4 Gait Assistive Device: FWW very slow, antalgic Exercises Supine Ex: Ankle pumps, Quad Set, Heel Slides Supine Reps: 15 Seated Therapy Exercises: Long arc quads Seated Reps: 15 Assessment Patient appears to have increase anxiety with activity requiring treatment to cease due to patient c/o dizziness and increase SOA. Patient in recliner with OT present. PT Senior Living Goals Sign Writer Hand Goals PT Senior Living Goals Time Frame: May 26, 2019 Transfers (B,C,W/C) (FIM): 6 Gait (FIM): 6 Gait distance (FIM): 3=150 ft Distance: 150' Gait Level of Assist: 6 Gait Assistive Device: FWW PT Plan Treatment/Plan Treatment Plan: Continue Plan of Care Treatment Plan: Bed Mobility, Education, Functional Activity Cecy, Functional Strength, Gait, Safety, Therapeutic Exercise, Transfers Treatment Duration: May 26, 2019 Frequency: 11 times per week Estimated Hrs Per Day: .5 hour per day Patient and/or Family Agrees t: Yes Time/GCodes Time In: 1300 Time Out: 1329 Total Billed Treatment Time: 29 Total Billed Treatment 1 visit EX 10 min GT 19 min IVETTE LITTLE PT May 18, 2019 13:40
--- NOTE | 2019-05-18 13:53 | Occupational Ther Daily Note ---
OT Current Status-Daily Note Subjective pt sitting in chair upon OT arrival. pt agreed to OT TX session with focus on increasing independence with ADLS Mental Status/Objective Patient Orientation: Normal For Age Therapy Code Descriptions/Definitions Functional [place] Measure: 0=Not Assessed/NA 4=Minimal Assistance 1=Total Assistance 5=Supervision or Setup 2=Maximal Assistance 6=Modified [place] 3=Moderate Assistance 7=Complete [place] Attachments: IV ADL-Treatment Grooming (FIM): 5 (set upwash face, wash hands, comb hair.) Upper Body (FIM): 5 (jacket, set up) Lower Body Dressing (FIM): 5 (iris socks, doff/ tim with use of AEpt education on use of design draftsman, sock aid, and dressing stricl pt demo ability to tim/ doff iris socks X3) Transfers (B, C, W/C) (FIM): 4 (use of RW ) increased time noted to complete tasks secondary to increase pain with movement. pt education on hip precaution . pt verbalized understanding. post OT session pt sitting in chair, call light within reach, all needs met. Education OT Patient Education: Modified ADL techniques, Progress toward Goal/Update tx plan, Purpose of tx/functional activities, Reviewed precautions, Rehab process, Safety issues, Transfer techniques, Use of adapted equipment Teaching Recipient: Patient Teaching Methods: Demonstration, Discussion Response to Teaching: Verbalize Understanding, Return Demonstration OT Short Term Goals Short Term Goals 1=Demonstrate adherence to instructed precautions during ADL tasks. 2=Patient will verbalize/demonstrate understanding of assistive devices/modifications for ADL. 3=Patient will improve strength/tolerance for activity to enable patient to perform ADL's. OT Penitentiary Goals Hand Packager Goals Time Frame: May 31, 2019 Eating (FIM): 6 Grooming(FIM): 6 Bathing(FIM): 5 Upper Body Dressing(FIM): 5 Lower Body Dressing(FIM): 4 Toileting(FIM): 5 Transfers (B,C,W/C) (FIM): 5 Toilet/Commode Transfer(FIM): 5 Additional Goals: 1-Demonstrate ADL Tasks, 2-Verbalize Understanding, 3- ImproveStrength/Cecy 1=Demonstrate adherence to instructed precautions during ADL tasks. 2=Patient will verbalize/demonstrate understanding of assistive devices/modifications for ADL. 3=Patient will improve strength/tolerance for activity to enable patient to perform ADL's. OT Education/Plan Problem List/Assessment Assessment: Decreased Activ Tolerance, Decreased UE Strength, Impaired I ADL's, Impaired Self-Care Skills Discharge Recommendations Plan/Recommendations: Continue POC Therapy D/C Recommendations: Acute Rehab Barriers to Progress hip pain Treatment Plan/Plan of Care Treatment,Training & Education: Yes Patient would benefit from OT for education, treatment and training to promote independence in ADL's, mobility, safety and/or upper extremity function for ADL's. Plan of Care: ADL Retraining, Functional Mobility, UE Funct Exercise/Act Treatment Duration: May 24, 2019 Frequency: 5 times per week Estimated Hrs Per Day: .5 hour per day Agreement: Yes Rehab Potential: Fair Time/GCodes Start Time: 13:30 Stop Time: 13:55 Billed Treatment Time ADL 25 minutes, 2 units AV GONZALEZ OT May 18, 2019 13:53
[2019-05-18 16:00] VITALS: BP 99/63
[2019-05-18 17:47] LABS: HEMOGLOBIN 7.2 G/DL (11.5-16.0)
[2019-05-18 20:00] VITALS: BP 111/67
[2019-05-18] MEDS: NORTRIPTYLINE 25 MG (PAMELOR) CAP PO SCH (21:08)
[2019-05-18] MEDS: buPROPion SR 150 MG (WELLBUTRIN SR) TAB PO SCH (21:08)
[2019-05-19] VITALS (9 sets, daily range): BP systolic 118–136; BP diastolic 54–79
[2019-05-19] MEDS: HYDROcodone/APAP 5 MG/325 MG (LORTAB) TAB PO PRN ×5 (02:58→22:52)
[2019-05-19] MEDS: LEVOTHYROXINE 50 MCG (LEVOTHROID) TAB PO SCH (03:43)
[2019-05-19 05:51] LABS: BASOPHILS % (AUTO) 1 % (0-10); EOSINOPHILS # (AUTO) 0.9 10^3/uL (0.0-0.3); EOSINOPHILS % (AUTO) 14 % (0-10); HEMATOCRIT 22 % (35-52); LYMPHOCYTES # (AUTO) 0.7 X 10^3 (1.0-4.0); LYMPHOCYTES % (AUTO) 11 % (12-44); MEAN CORPUSCULAR HEMOGLOBIN 32 PG (25-34); MEAN CORPUSCULAR HGB CONC 32 G/DL (32-36); MEAN CORPUSCULAR VOLUME 99 FL (80-99); MEAN PLATELET VOLUME 10.9 FL (7.4-10.4); MONOCYTES # (AUTO) 0.6 X 10^3 (0.0-1.0); MONOCYTES % (AUTO) 9 % (0-12); NEUTROPHILS # (AUTO) 4.2 X 10^3 (1.8-7.8); NEUTROPHILS % (AUTO) 66 % (42-75); PLATELET COUNT 142 10^3/uL (130-400); RED CELL DISTRIBUTION WIDTH 12.2 % (10.0-14.5); WHITE BLOOD COUNT 6.4 10^3/uL (4.3-11.0)
[2019-05-19 06:01] LABS: INR 1.1 (0.8-1.4); PROTHROMBIN TIME PATIENT 14.6 SEC (12.2-14.7)
[2019-05-19 06:11] LABS: ALANINE AMINOTRANSFERASE 400 U/L (0-55); ALBUMIN 2.7 GM/DL (3.2-4.5); ALKALINE PHOSPHATASE 224 U/L (40-136); BILIRUBIN,TOTAL 0.3 MG/DL (0.1-1.0); BUN/CREATININE RATIO 12; CARBON DIOXIDE 25 MMOL/L (21-32); CHLORIDE 108 MMOL/L (98-107); CREATININE SERUM 0.67 MG/DL (0.60-1.30); GFR ESTIMATED > 60; GLUCOSE 102 MG/DL (70-105); POTASSIUM 4.1 MMOL/L (3.6-5.0); SODIUM 141 MMOL/L (135-145); TOTAL PROTEIN 4.9 GM/DL (6.4-8.2)
[2019-05-19] MEDS ORDERED: NS IV 500 ML 500 ML IV SCH (07:42)
[2019-05-19] MEDS ORDERED: BISACODYL 10 MG SUPP (DULCOLAX) PR PRN (08:00)
[2019-05-19] MEDS: LACTATED RINGERS 1,000 ML IV SCH (08:02)
--- NOTE | 2019-05-19 08:34 | NUR ---
CONSENT SIGNED FOR BLOOD TRANSFUSION, PRC HUNG TO INFUSE AT 75ML HOUR, IV SITE WITHOUT REDNESS OR SWELLING, VERBALIZED UNDERSTANDING,
[2019-05-19] MEDS: MAGNESIUM CITRATE 300 ML BTL PO ONE ×2 (08:42→12:08)
[2019-05-19] MEDS: APIXABAN 5 MG (ELIQUIS) TABLET PO SCH ×2 (08:43→21:10)
[2019-05-19] MEDS: DOCUSATE SODIUM 100 MG (COLACE) CAP PO SCH ×2 (08:43→21:11)
[2019-05-19] MEDS: SENNA W/DOCUSATE (SENOKOT S) TABLET PO SCH ×2 (08:43→21:11)
--- NOTE | 2019-05-19 10:17 | Progress Note - Ortho ---
Progress Note Subjective Date of Exam 05/19/19 Chief Complaint Days status post cemented bipolar hemiarthroplasty left hip HPI/Events since last exam Patient is 3 days postop. She is presently receiving a blood transfusion as her hemoglobin this morning was 7.0. [place]eb[place] less pain in the left hip and is getting up and ambulating with less pain Review of Systems Reviewed and no additions or changes Allergies: Coded Allergies: No Known Drug Allergies (Unverified , 05/15/19) Home Meds Reported Medications Nortriptyline HCl (Nortriptyline HCl) 25 Mg Capsule, 25 MG PO HS, CAP 05/16/19 Multivitamin (Multivitamins) 1 Each Tablet, 1 TAB PO DAILY, TAB 05/16/19 Cyanocobalamin (Vitamin B-12) (Vitamin B-12) 1,000 Mcg Tablet, 1000 MCG PO DAILY, TAB 05/16/19 Loratadine (Claritin) 10 Mg Tablet, 10 MG PO DAILY PRN for ALLERGIES, TAB 05/16/19 Estradiol (Estradiol Tablet) 0.5 Mg Tablet, 0.25 MG PO HS, TAB TAKES 1/2 (0.5MG) TABLET 05/16/19 Cyclobenzaprine HCl (Cyclobenzaprine HCl) 5 Mg Tablet, 5 MG PO HS PRN for MUSCLE SPASMS, TAB 05/16/19 Levothyroxine Sodium (Levothyroxine Sodium) 50 Mcg Tablet, 50 MCG PO 0200, TAB 05/16/19 Lorazepam (Lorazepam) 1 Mg Tablet, 0.5 MG PO DAILY PRN for ANXIETY, TAB TAKES 1/2 (1MG) TABLET 05/16/19 Bupropion HCl (Bupropion Xl) 150 Mg Tab.er.24h, 150 MG PO HS, TAB 05/15/19 Apixaban (Eliquis) 5 Mg Tablet, 5 MG PO BID, TAB 05/15/19 Discontinued Reported Medications Celecoxib (Celebrex) 200 Mg Capsule, 200 MG PO DAILY, CAP 05/16/19 Levothyroxine Sodium (Levothyroxine Sodium) 100 Mcg Tablet 05/15/19 Cyclobenzaprine HCl (Cyclobenzaprine HCl) 10 Mg Tablet 05/15/19 Objective Exam Constitutional: [] HEENT: [] Neck: [] Cardiovascular: [] Respiratory: [] Gastrointestinal: [] Genitourinary: [] Skin: [] Back/Spine: [] Extremities: [Her dressing is intact with no bleeding. She has normal sensation to her foot and toes with good capillary refill and symmetrical pulses. No calf tenderness and negative Homans. No weakness on dorsiflexion plantar flexion of the foot and ankle. Equal position both legs] Neurologic: [] Psychiatric: [] Hematologic/lymphatic/immunologic: [] Vital Signs Vital Signs Date Time Temp Pulse Resp B/P (MAP) Pulse Ox O2 Delivery O2 Flow Rate FiO2 05/19/19 08:47 97.9 104 18 122/54 95 Room Air 05/19/19 08:32 97.0 104 18 131/61 98 Nasal Cannula 2.00 05/19/19 07:00 94 05/19/19 04:00 98.0 100 18 126/59 (81) 98 Nasal Cannula 2.00 05/19/19 02:44 Nasal Cannula 2.00 05/19/19 01:00 107 05/19/19 00:30 98.8 107 17 118/56 (76) 98 Nasal Cannula 2.00 05/18/19 20:30 Nasal Cannula 2.00 05/18/19 20:00 96.0 107 20 111/67 (82) 100 Nasal Cannula 2.00 05/18/19 19:00 109 05/18/19 16:00 98.2 106 18 99/63 (75) 94 Nasal Cannula 2.00 05/18/19 13:00 102 05/18/19 12:00 97.9 103 18 109/69 (82) 98 Nasal Cannula 3.00 I & O 05/19/19 07:00 Intake Total 1390 ml Output Total 900 ml Balance 490 ml Lab Results Laboratory Tests 05/18/19 17:31: Hemoglobin 7.2L, Hematocrit 22L 05/19/19 05:20: Hemoglobin 7.0L, Hematocrit 22L, White Blood Count 6.4, Red Blood Count 2.19L, Mean Corpuscular Volume 99, Mean Corpuscular Hemoglobin 32, Mean Corpuscular Hemoglobin Concent 32, Red Cell Distribution Width 12.2, Platelet Count 142, Mean Platelet Volume 10.9H, Neutrophils (%) (Auto) 66, Lymphocytes (%) (Auto) 11L, Monocytes (%) (Auto) 9, Eosinophils (%) (Auto) 14H, Basophils (%) (Auto) 1, Neutrophils # (Auto) 4.2, Lymphocytes # (Auto) 0.7L, Monocytes # (Auto) 0.6, Eosinophils # (Auto) 0.9H, Basophils # (Auto) 0.0 05/19/19 05:22: Prothrombin Time 14.6, INR Comment 1.1, Sodium Level 141, Potassium Level 4.1, Chloride Level 108H, Carbon Dioxide Level 25, Anion Gap 8, Blood Urea Nitrogen 8, Creatinine 0.67, Estimat Glomerular Filtration Rate > 60, BUN/Creatinine Ratio 12, Glucose Level 102, Calcium Level 8.0L, Corrected Calcium 9.0, Total Bilirubin 0.3, Aspartate Amino Transf (AST/SGOT) 252H, Alanine Aminotransferase (ALT/SGPT) 400H, Alkaline Phosphatase 224H, Total Protein 4.9L, Albumin 2.7L Microbiology 05/16/19 MRSA Screen - Final, Complete MRSA not isolated Assessment and Plan Assessment 3 days postop cemented bipolar hemiarthroplasty left hip Problem List Unchanged other than acute blood loss anemia as a result of the fracture, surgery and the fact that she was on Eliquis preop. It is felt that this combination resulted in increased blood loss resulting in transfusion Plan Continue with therapy, walker ambulation weight-bear as tolerated on the left. Final Diagonsis Cemented bipolar hemiarthroplasty left hip for displaced subcapital/femoral neck fracture on the left. Acute blood loss anemia as a result of the fracture, surgery in being on anticoagulants preop as well as postop Level of the visit: Level 3 Clinical Quality Measures DVT/VTE Risk/Contraindication: Risk Factor Score Per Nursin RFS Level Per Nursing on Admit: 4+=Very High JENNY CARRENO MD May 19, 2019 10:17
--- NOTE | 2019-05-19 10:22 | Physical Therapy Daily Note ---
PT Daily Note-Current Subjective Patient in bed pre tx, agrees to PT, has 5/10 pain in left leg. Patient needs to use the restroom. She cleans herself without assist after using the restroom. Appearance Patient in hip chair post tx with nurse call, phone, tray, all needs met. Patient state she has a strange taste in her mouth and wanted this PT to notify the nurse, PT notified the nurse. Mental Status Patient Orientation: Person, Place, Situation Attachments: IV getting blood Transfers Therapy Code Descriptions/Definitions Functional [place] Measure: 0=Not Assessed/NA 4=Minimal Assistance 1=Total Assistance 5=Supervision or Setup 2=Maximal Assistance 6=Modified [place] 3=Moderate Assistance 7=Complete [place] Therapy Quality Codes: 6 Independent with activity with or without an assistive device 5 Patient requires set up or clean up by helper. Patient completes activity by themselves 4 Supervision or touching assist (CGA). [place] provide cues , steadying assist 3 The helper provides less than half the effort to complete the activity 2 The helper provides more than half the effort to complete the activity 1 Dependent. The helper does all the effort to complete an activity 7 Patient refused to complete or attempt activity 9 The patient did not perform the activity before the current illness or injury 88 Not attempted due to Medical conditions or safety concerns Transfers (B, C, W/C) (FIM): 4 Scootin Rollin Supine to/from Sit: 4 Sit to/from Stand: 4 Bed to/from Chair: 4 Min assist supine to sit, sit to stand CGA, transfers CGA Weight Bearing Right Lower Extremity: Right Full Weight Bearing Left Lower Extremity: Left Weight Bearing/Tolerated Gait Training Gait (FIM): 1 Distance: 10'x2 Gait Level of Assist: 4 Gait Persons Needed: 1 Gait Assistive Device: FWW antalgic, slow, able to bear some weight on left leg Exercises Seated Therapy Exercises: Ankle pumps, Long arc quads Seated Reps: 15 Treatments bed mobility and transfers, toileting, LE exercise Assessment Current Status: Fair Progress improved general mobility PT Cosmetic Sales Goals Cosmetic Sales Goals PT Correction Goals Time Frame: May 26, 2019 Transfers (B,C,W/C) (FIM): 6 Gait (FIM): 6 Gait distance (FIM): 3=150 ft Distance: 150' Gait Level of Assist: 6 Gait Assistive Device: FWW PT Plan Problem List Problem List: Activity Tolerance, Functional Strength, Safety, Balance, Gait, Transfer, Bed Mobility, ROM Treatment/Plan Treatment Plan: Continue Plan of Care Treatment Plan: Bed Mobility, Education, Functional Activity Cecy, Functional Strength, Gait, Safety, Therapeutic Exercise, Transfers Treatment Duration: May 26, 2019 Frequency: 11 times per week Estimated Hrs Per Day: .5 hour per day Patient and/or Family Agrees t: Yes Safety Risks/Education Patient Education: Gait Training, Transfer Techniques, Correct Positioning, Safety Issues Teaching Recipient: Patient Teaching Methods: Demonstration, Discussion Response to Teaching: Reinforcement Needed Time/GCodes Time In: 0959 Time Out: 1016 Total Billed Treatment Time: 17 Total Billed Treatment 1 visit FA 17' JAKE CHAMORRO PT May 19, 2019 10:22
--- NOTE | 2019-05-19 11:10 | Cardiology Progress Note ---
Subjective Date Seen by Provider: May 19, 2019 Time Seen by Provider: 11:09 Subjective/Events-last exam patient is sitting in a chair, feeling better, receiving blood transfusion. No chest pain or shortness of breath. Review of Systems General: No Chills, No Night Sweats, No Fatigue, No Malaise, No Appetite, No Other HEENT: No Head Aches, No Visual Changes, No Eye Pain, No Ear Pain, No Dysphasia, No Sinus Congestion, No Post Nasal Drip, No Sore Throat, No Other Pulmonary: No Dyspnea, No Cough, No Pleuritic Chest Pain, No Other Cardiovascular: No: Chest Pain, Palpitations, Orthopnea, Paroxysmal Noc. Dyspnea, Edema, Lt Headedness, Other Objective-Cardiology Exam Last Set of Vital Signs Vital Signs 05/19/19 05/19/19 08:32 08:47 Temp 97.9 Pulse 104 Resp 18 B/P (MAP) 122/54 Pulse Ox 95 O2 Delivery Room Air O2 Flow Rate 2.00 Capillary Refill : Less Than 3 SecondsLess Than 3 Seconds I&O Intake and Output 05/19/19 00:00 Intake Total 2240 ml Output Total 1050 ml Balance 1190 ml Intake Oral 1240 ml IV Total 1000 ml Output Urine Total 1050 ml # Voids 2 General: Alert, Oriented X3, Cooperative HEENT: Atraumatic, PERRLA Neck: Supple, No JVD, No Thyromegaly Lungs: Clear to Auscultation, Normal Air Movement Heart: Regular Rate, Normal S1, Normal S2, No Murmurs Abdomen: Normal Bowel Sounds, Soft, No Tenderness, No Hepatosplenomegaly, No Masses Extremities: No Clubbing, No Cyanosis, No Edema, Normal Pulses, No Tenderness/Swelling Skin: No Rashes, No Breakdown, No Significant Lesion Neuro: Normal Gait, Normal Speech, Strength at 5/5 X4 Ext, Normal Tone, Sensation Intact Psych/Mental Status: Mental Status NL, Mood NL Results Lab Laboratory Tests 05/18/19 17:31 05/19/19 05:20 05/19/19 05:22 A/P-Cardiology Admission Diagnosis left hip fracture recent PE Hypothyroidism Headache Assessment/Plan Left hip fracture, postoperative day 3, recovering well. Continue to monitor Anemia, receiving blood transfusion, continue to monitor, continue on Eliquis History of recent PE, unprovoked, occurring approx 6 weeks ago. continue on Eliquis and monitor Hypothyroidism- follows with chimney builder in [place]. Headache- CT head done in ER negative Elevated LFT's, persistent elevation, managed by primary care team Celiac disease Hx of vocal cord paralysis Clinical Quality Measures DVT/VTE Risk/Contraindication: Risk Factor Score Per Nursin RFS Level Per Nursing on Admit: 4+=Very High DEE ARMENTA MD May 19, 2019 11:10
[2019-05-19] MEDS: POLYETHYLENE GLYCOL 17 GM (MIRALAX) PACK PO SCH ×2 (11:24→21:11)
--- NOTE | 2019-05-19 11:57 | Progress Note - Hospitalist ---
Subjective HPI/CC On Admission Date Seen by Provider: May 19, 2019 Time Seen by Provider: 09:00 fall Subjective/Events-last exam She reports feeling better today. She is feeling less weak. She walked to the bathroom last night. She has not had a bowel movement. She is eating and drinking well. Her pain is well controlled. She had a nose bleed yesterday, but no other signs of bleeding. She denies fevers, chills, chest pain, dyspnea, abdominal pain, nausea, vomiting, diarrhea. Objective Exam Vital Signs Vital Signs Date Time Temp Pulse Resp B/P (MAP) Pulse Ox O2 Delivery O2 Flow Rate FiO2 05/19/19 11:30 97.0 83 18 123/58 98 Room Air 05/19/19 08:32 2.00 Capillary Refill : Less Than 3 SecondsLess Than 3 Seconds General Appearance: No Apparent Distress, WD/WN, Other (sitting in bedside chair) HEENT: PERRL/EOMI, Pharynx Normal Neck: Non Tender, Supple Respiratory: Lungs Clear, Normal Breath Sounds, No Respiratory Distress; No Crackles, No Decreased Breath Sounds, No Wheezing Cardiovascular: Regular Rate, Rhythm, No Edema, No Murmur Gastrointestinal: Normal Bowel Sounds, Non Tender, Soft Extremity: Normal Range of Motion, Non Tender, No Pedal Edema Neurologic/Psychiatric: Alert, Oriented x3, No Motor/Sensory Deficits Skin: Normal Color, Warm/Dry Results/Procedures Lab Laboratory Tests 05/18/19 17:31 05/19/19 05:20 05/19/19 05:22 Patient resulted labs reviewed. Assessment/Plan Assessment and Plan Assess & Plan/Chief Complaint Left femoral neck fracture Fall down stairs -Underwent hip surgery with Dr. Cullen 05/16 -Pain regimen ordered -Tolerating diet -Out of bed to chair and up with PT today -Encouraged incentive spirometry use -Continue bowel regimen -Planning for [facility] in [facility] on discharge, SW assistance appreciated Acute blood loss anemia -Hemoglobin trending down, 7.0 this morning -No signs of active bleeding -Transfuse 1 unit PRBC today, repeat CBC tomorrow morning DVT/PE -Continue Eliquis Hepatocellular hepatitis -AST improving today, ALT likely lagging -Workup thus far unrevealing -Meds reviewed and no offended agents identified -Continue to monitor Eosinophilia -Eosinophils remain elevated -Continue to monitor Hypothyroidism -Continue levothyroxine Diagnosis/Problems Diagnosis/Problems (1) Closed left hip fracture Status: Acute (2) History of pulmonary embolus (PE) Status: Acute (3) Hepatocellular dysfunction Status: Acute (4) Hypothyroidism Status: Chronic (5) Acute blood loss anemia Status: Acute (6) Eosinophilia Status: Acute Clinical Quality Measures DVT/VTE Risk/Contraindication: Risk Factor Score Per Nursin RFS Level Per Nursing on Admit: 4+=Very High JEAN PAUL AARON MD May 19, 2019 11:57
--- NOTE | 2019-05-19 12:09 | NUR ---
PT HAD LARGE BOWEL MOVEMENT, MAG CITRATE HELD
[2019-05-19 14:20] LABS: HEPATITIS C ANTIBODY C Non-Reactive (Non-Reactive)
[2019-05-19] MEDS: buPROPion SR 150 MG (WELLBUTRIN SR) TAB PO SCH (21:10)
[2019-05-19] MEDS: NORTRIPTYLINE 25 MG (PAMELOR) CAP PO SCH (21:10)
[2019-05-20 00:26] VITALS: BP 135/68
[2019-05-20] MEDS: LACTATED RINGERS 1,000 ML IV SCH ×2 (01:03→11:22)
[2019-05-20] MEDS: LEVOTHYROXINE 50 MCG (LEVOTHROID) TAB PO SCH (02:10)
[2019-05-20] MEDS: HYDROcodone/APAP 5 MG/325 MG (LORTAB) TAB PO PRN ×5 (03:08→22:57)
[2019-05-20 04:00] VITALS: BP 122/71
[2019-05-20 06:02] LABS: BASOPHILS # (AUTO) 0.1 10^3/uL (0.0-0.1); BASOPHILS % (AUTO) 1 % (0-10); EOSINOPHILS % (AUTO) 12 % (0-10); HEMATOCRIT 26 % (35-52); HEMOGLOBIN 8.5 G/DL (11.5-16.0); LYMPHOCYTES # (AUTO) 1.1 X 10^3 (1.0-4.0); LYMPHOCYTES % (AUTO) 13 % (12-44); MEAN CORPUSCULAR HGB CONC 33 G/DL (32-36); MEAN CORPUSCULAR VOLUME 96 FL (80-99); MEAN PLATELET VOLUME 10.6 FL (7.4-10.4); MONOCYTES # (AUTO) 0.7 X 10^3 (0.0-1.0); MONOCYTES % (AUTO) 9 % (0-12); NEUTROPHILS # (AUTO) 5.2 X 10^3 (1.8-7.8); NEUTROPHILS % (AUTO) 65 % (42-75); PLATELET COUNT 169 10^3/uL (130-400); RED CELL DISTRIBUTION WIDTH 13.5 % (10.0-14.5)
[2019-05-20 06:05] LABS: MEAN CORPUSCULAR HEMOGLOBIN 31 PG (25-34)
[2019-05-20 06:14] LABS: PROTHROMBIN TIME PATIENT 13.9 SEC (12.2-14.7)
[2019-05-20 06:29] LABS: ALANINE AMINOTRANSFERASE 309 U/L (0-55); ALBUMIN 2.8 GM/DL (3.2-4.5); ALKALINE PHOSPHATASE 288 U/L (40-136); BILIRUBIN,TOTAL 0.5 MG/DL (0.1-1.0); BUN/CREATININE RATIO 11; CALCIUM 8.5 MG/DL (8.5-10.1); CARBON DIOXIDE 21 MMOL/L (21-32); CHLORIDE 108 MMOL/L (98-107); CREATININE SERUM 0.71 MG/DL (0.60-1.30); GFR ESTIMATED > 60; GLUCOSE 103 MG/DL (70-105); POTASSIUM 4.1 MMOL/L (3.6-5.0); SODIUM 140 MMOL/L (135-145); TOTAL PROTEIN 5.3 GM/DL (6.4-8.2)
[2019-05-20 08:00] VITALS: BP 118/67
[2019-05-20] MEDS: SENNA W/DOCUSATE (SENOKOT S) TABLET PO SCH ×2 (08:22→21:00)
[2019-05-20] MEDS: APIXABAN 5 MG (ELIQUIS) TABLET PO SCH ×2 (08:22→20:31)
[2019-05-20] MEDS: DOCUSATE SODIUM 100 MG (COLACE) CAP PO SCH ×2 (08:22→21:00)
--- NOTE | 2019-05-20 08:40 | Physical Therapy Daily Note ---
PT Daily Note-Current Subjective Patient in bed pre tx, agrees to PT, has 4/10 pain in left leg. Appearance Patient in hip chair post tx with nurse call, phone, tray, all needs met. Mental Status Patient Orientation: Person, Place, Situation Attachments: IV Transfers Therapy Code Descriptions/Definitions Functional [place] Measure: 0=Not Assessed/NA 4=Minimal Assistance 1=Total Assistance 5=Supervision or Setup 2=Maximal Assistance 6=Modified [place] 3=Moderate Assistance 7=Complete [place] Therapy Quality Codes: 6 Independent with activity with or without an assistive device 5 Patient requires set up or clean up by helper. Patient completes activity by themselves 4 Supervision or touching assist (CGA). [place] provide cues , steadying assist 3 The helper provides less than half the effort to complete the activity 2 The helper provides more than half the effort to complete the activity 1 Dependent. The helper does all the effort to complete an activity 7 Patient refused to complete or attempt activity 9 The patient did not perform the activity before the current illness or injury 88 Not attempted due to Medical conditions or safety concerns Transfers (B, C, W/C) (FIM): 5 Scootin Rollin Supine to/from Sit: 5 Sit to/from Stand: 5 Bed to/from Chair: 5 Patient has some difficulty with sit to stand from lower surfaces but can do it without assist, cues for hand placement and safety. Weight Bearing Right Lower Extremity: Right Full Weight Bearing Left Lower Extremity: Left Weight Bearing/Tolerated Gait Training Gait (FIM): 2 Distance: 120' Gait Level of Assist: 5 Gait Persons Needed: 1 Gait Assistive Device: FWW slow, antalgic, poor step through on right side Exercises Seated Therapy Exercises: Ankle pumps, Long arc quads Seated Reps: 20 Treatments bed mobility and transfers, ambulation, LE exercise Assessment Current Status: Fair Progress improved endurance and ambulation PT Detention Goals Scale Mechanic Goals PT Detention Goals Time Frame: May 26, 2019 Transfers (B,C,W/C) (FIM): 6 Gait (FIM): 6 Gait distance (FIM): 3=150 ft Distance: 150' Gait Level of Assist: 6 Gait Assistive Device: FWW PT Plan Problem List Problem List: Activity Tolerance, Functional Strength, Safety, Balance, Gait, Transfer, Bed Mobility, ROM Treatment/Plan Treatment Plan: Continue Plan of Care Treatment Plan: Bed Mobility, Education, Functional Activity Cecy, Functional Strength, Gait, Safety, Therapeutic Exercise, Transfers Treatment Duration: May 26, 2019 Frequency: 11 times per week Estimated Hrs Per Day: .5 hour per day Patient and/or Family Agrees t: Yes Safety Risks/Education Patient Education: Gait Training, Transfer Techniques, Correct Positioning, Safety Issues Teaching Recipient: Patient Teaching Methods: Demonstration, Discussion Response to Teaching: Reinforcement Needed Time/GCodes Time In: 0815 Time Out: 0834 Total Billed Treatment Time: 19 Total Billed Treatment 1 visit FA 19' JAKE CHAMORRO PT May 20, 2019 08:40
[2019-05-20] MEDS: POLYETHYLENE GLYCOL 17 GM (MIRALAX) PACK PO SCH ×2 (10:01→21:00)
--- NOTE | 2019-05-20 10:57 | Cardiology Progress Note ---
Subjective Date Seen by Provider: May 20, 2019 Time Seen by Provider: 10:55 Subjective/Events-last exam patient is laying down in bed, denied any chest pain, feeling better. No palpitation. Review of Systems General: No Chills, No Night Sweats, No Fatigue, No Malaise, No Appetite, No Other HEENT: No Head Aches, No Visual Changes, No Eye Pain, No Ear Pain, No Dyspha heather, No Sinus Congestion, No Post Nasal Drip, No Sore Throat, No Other Pulmonary: No Dyspnea, No Cough, No Pleuritic Chest Pain, No Other Cardiovascular: No: Chest Pain, Palpitations, Orthopnea, Paroxysmal Noc. Dyspnea, Edema, Lt Headedness, Other Objective-Cardiology Exam Last Set of Vital Signs Vital Signs 05/20/19 05/20/19 05/20/19 04:00 07:00 08:00 Temp 98.9 Pulse 100 Resp 18 B/P (MAP) 122/71 (88) Pulse Ox 100 O2 Delivery Nasal Cannula O2 Flow Rate 2.00 Capillary Refill : Less Than 3 SecondsLess Than 3 Seconds I&O Intake and Output 05/20/19 00:00 Intake Total 2830 ml Output Total 400 ml Balance 2430 ml Intake Oral 1530 ml IV Total 1150 ml Other 150 ml Output Urine Total 400 ml # Voids 7 # Bowel Movements 1 General: Alert, Oriented X3, Cooperative HEENT: Atraumatic, PERRLA Neck: Supple, No JVD, No Thyromegaly Lungs: Clear to Auscultation, Normal Air Movement Heart: Normal S1, Normal S2, No Murmurs, Other (tachycardia) Abdomen: Normal Bowel Sounds, Soft, No Tenderness, No Hepatosplenomegaly, No Masses Extremities: No Clubbing, No Cyanosis, No Edema, Normal Pulses, No Tenderness/Swelling Skin: No Rashes, No Breakdown, No Significant Lesion Neuro: Normal Gait, Normal Speech, Strength at 5/5 X4 Ext, Normal Tone, Sensation Intact Psych/Mental Status: Mental Status NL, Mood NL Results Lab Laboratory Tests 05/20/19 05:35 A/P-Cardiology Admission Diagnosis left hip fracture recent PE Hypothyroidism Headache Assessment/Plan Left hip fracture, postoperative day 4, recovering well. Continue to monitor Anemia, received blood transfusion yesterday, doing better today. Continue to monitor Sinus tachycardia, probably secondary to anemia. Recent pulmonary embolism, planning to start low-dose beta blockers with Toprol-XL 25 mg daily, evaluate tolerance and response. History of recent PE, unprovoked, occurring approx 6 weeks ago. continue on Eliquis and monitor Hypothyroidism- follows with circuit manager in [place]. Headache- CT head done in ER negative Elevated LFT's, persistent elevation, managed by primary care team Celiac disease Hx of vocal cord paralysis Clinical Quality Measures DVT/VTE Risk/Contraindication: Risk Factor Score Per Nursin RFS Level Per Nursing on Admit: 4+=Very High DEE ARMENTA MD May 20, 2019 10:57
[2019-05-20 12:18] VITALS: BP 122/76
--- NOTE | 2019-05-20 15:03 | Progress Note - Hospitalist ---
Subjective HPI/CC On Admission Date Seen by Provider: May 20, 2019 Time Seen by Provider: 11:30 fall Subjective/Events-last exam She reports feeling better every day. She had a bowel movement. She has been eating and drinking well. Her hip pain is well controlled on oral medications. She has been walking in the halls. She denies any chest pain, dyspnea, abdominal pain, nausea, vomiting, diarrhea, constipation. Objective Exam Vital Signs Vital Signs Date Time Temp Pulse Resp B/P (MAP) Pulse Ox O2 Delivery O2 Flow Rate FiO2 05/20/19 12:33 98 05/20/19 12:18 98.2 18 122/76 (91) 96 Room Air 05/20/19 08:00 2.00 Capillary Refill : Less Than 3 SecondsLess Than 3 Seconds General Appearance: No Apparent Distress, WD/WN HEENT: PERRL/EOMI, Pharynx Normal Neck: Normal Inspection, Supple Respiratory: Lungs Clear, Normal Breath Sounds, No Respiratory Distress Cardiovascular: Regular Rate, Rhythm, No Edema, No Murmur Gastrointestinal: Normal Bowel Sounds, Non Tender, Soft Extremity: Normal Inspection, No Calf Tenderness, No Pedal Edema Neurologic/Psychiatric: Alert, Oriented x3, No Motor/Sensory Deficits Skin: Normal Color, Warm/Dry Lymphatic: No Adenopathy Results/Procedures Lab Laboratory Tests 05/20/19 05:35 Patient resulted labs reviewed. Assessment/Plan Assessment and Plan Assess & Plan/Chief Complaint Left femoral neck fracture Fall down stairs -Underwent hip surgery with Dr. Cullen 05/16 -Pain regimen ordered -Tolerating diet -Walking in halls -Continue incentive spirometry use -Continue bowel regimen -Planning for [facility] in [place] on discharge, SW assistance appreciated Acute blood loss anemia -Hemoglobin stable today -Responded appropriately to transfusion -Continue to monitor DVT/PE -Continue Eliquis Hepatocellular hepatitis -LFTs improving -Workup thus far unrevealing -Meds reviewed and no offended agents identified -Continue to monitor Eosinophilia -Eosinophils remain elevated -Continue to monitor Hypothyroidism -Continue levothyroxine Diagnosis/Problems Diagnosis/Problems (1) Closed left hip fracture Status: Acute (2) History of pulmonary embolus (PE) Status: Acute (3) Hepatocellular dysfunction Status: Acute (4) Hypothyroidism Status: Chronic (5) Acute blood loss anemia Status: Acute (6) Eosinophilia Status: Acute Clinical Quality Measures DVT/VTE Risk/Contraindication: Risk Factor Score Per Nursin RFS Level Per Nursing on Admit: 4+=Very High JEAN PAUL AARON MD May 20, 2019 15:03
[2019-05-20 16:00] VITALS: BP 145/84
[2019-05-20 20:00] VITALS: BP 157/72
[2019-05-20] MEDS: NORTRIPTYLINE 25 MG (PAMELOR) CAP PO SCH (20:31)
[2019-05-20] MEDS: buPROPion SR 150 MG (WELLBUTRIN SR) TAB PO SCH (20:31)
[2019-05-21 00:25] VITALS: BP 132/79
[2019-05-21] MEDS: LEVOTHYROXINE 50 MCG (LEVOTHROID) TAB PO SCH (02:00)
[2019-05-21] MEDS: HYDROcodone/APAP 5 MG/325 MG (LORTAB) TAB PO PRN ×3 (02:30→12:31)
[2019-05-21 04:02] VITALS: BP 117/72
[2019-05-21 05:24] LABS: BASOPHILS # (AUTO) 0.1 10^3/uL (0.0-0.1); BASOPHILS % (AUTO) 1 % (0-10); EOSINOPHILS # (AUTO) 0.9 10^3/uL (0.0-0.3); EOSINOPHILS % (AUTO) 11 % (0-10); HEMATOCRIT 27 % (35-52); HEMOGLOBIN 8.7 G/DL (11.5-16.0); LYMPHOCYTES # (AUTO) 1.4 X 10^3 (1.0-4.0); LYMPHOCYTES % (AUTO) 17 % (12-44); MEAN CORPUSCULAR HEMOGLOBIN 32 PG (25-34); MEAN CORPUSCULAR HGB CONC 33 G/DL (32-36); MEAN CORPUSCULAR VOLUME 96 FL (80-99); MEAN PLATELET VOLUME 10.7 FL (7.4-10.4); MONOCYTES # (AUTO) 0.9 X 10^3 (0.0-1.0); MONOCYTES % (AUTO) 11 % (0-12); NEUTROPHILS # (AUTO) 4.8 X 10^3 (1.8-7.8); NEUTROPHILS % (AUTO) 60 % (42-75); PLATELET COUNT 194 10^3/uL (130-400); RED CELL DISTRIBUTION WIDTH 13.2 % (10.0-14.5); WHITE BLOOD COUNT 7.9 10^3/uL (4.3-11.0)
[2019-05-21 05:32] LABS: PROTHROMBIN TIME PATIENT 13.8 SEC (12.2-14.7)
[2019-05-21 05:43] LABS: ALANINE AMINOTRANSFERASE 241 U/L (0-55); ALBUMIN 2.9 GM/DL (3.2-4.5); ALKALINE PHOSPHATASE 309 U/L (40-136); BILIRUBIN,TOTAL 0.6 MG/DL (0.1-1.0); BUN/CREATININE RATIO 15; CALCIUM 8.7 MG/DL (8.5-10.1); CARBON DIOXIDE 23 MMOL/L (21-32); CHLORIDE 108 MMOL/L (98-107); CREATININE SERUM 0.72 MG/DL (0.60-1.30); GFR ESTIMATED > 60; GLUCOSE 100 MG/DL (70-105); SODIUM 141 MMOL/L (135-145); TOTAL PROTEIN 5.5 GM/DL (6.4-8.2)
[2019-05-21] MEDS ORDERED: SENN-20 PO (07:38)
[2019-05-21] MEDS ORDERED: ACHD5005 PO (07:38)
[2019-05-21] MEDS: POLYETHYLENE GLYCOL 17 GM (MIRALAX) PACK PO SCH (07:40)
[2019-05-21] MEDS: SENNA W/DOCUSATE (SENOKOT S) TABLET PO SCH (07:41)
[2019-05-21 07:52] VITALS: BP 134/80
[2019-05-21] MEDS: APIXABAN 5 MG (ELIQUIS) TABLET PO SCH (08:02)
--- NOTE | 2019-05-21 08:36 | NUR ---
CM/RACHELLE spoke with the patient. She is still wanting to go to [facility] in [place], they have accepted her. She stated that her will be here this day to transport her back, she thought he would be here around 10. Once discharge done will fax necessary info to the facility.
--- NOTE | 2019-05-21 09:12 | Cardiology Progress Note ---
Subjective Date Seen by Provider: May 21, 2019 Time Seen by Provider: 09:10 Subjective/Events-last exam Patient is sitting up in chair, no new complaint. Being discharge to IRF in [place], [place] today. Objective-Cardiology Exam Last Set of Vital Signs Vital Signs 05/21/19 05/21/19 05/21/19 05:53 07:52 08:00 Temp 97.7 Pulse 79 Resp 20 B/P (MAP) 134/80 (98) Pulse Ox 95 O2 Delivery Room Air O2 Flow Rate 2.00 Capillary Refill : Less Than 3 SecondsLess Than 3 Seconds I&O Intake and Output 05/21/19 00:00 Intake Total 2360 ml Balance 2360 ml Intake Oral 1560 ml IV Total 800 ml # Voids 10 # Bowel Movements 3 General: Alert, Oriented X3, Cooperative HEENT: Atraumatic, PERRLA Neck: Supple, No JVD, No Thyromegaly Lungs: Clear to Auscultation, Normal Air Movement Heart: Regular Rate, Normal S1, Normal S2, No Murmurs Abdomen: Normal Bowel Sounds, Soft, No Tenderness, No Hepatosplenomegaly, No Masses Extremities: No Clubbing, No Cyanosis, No Edema, Normal Pulses, No Tenderness/Swelling Skin: No Rashes, No Breakdown, No Significant Lesion Neuro: Normal Gait, Normal Speech, Strength at 5/5 X4 Ext, Normal Tone, Sensation Intact Psych/Mental Status: Mental Status NL, Mood NL Results Lab Laboratory Tests 05/21/19 04:57 A/P-Cardiology Admission Diagnosis left hip fracture recent PE Hypothyroidism Headache Assessment/Plan Left hip fracture, postoperative day 4, recovering well. Continue to monitor Anemia, s/p blood transfusion, doing better today. Continue to monitor H/H. Sinus tachycardia, probably secondary to anemia. Recent pulmonary embolism, started on low-dose beta blockers with Toprol-XL 25 mg daily, evaluate tolerance and response. History of recent PE, unprovoked, occurring approx 6 weeks ago. continue on Eliquis and monitor Hypothyroidism- follows with health information tech in [place]. Headache, improved, CT head done in ER negative Elevated LFT's, persistent elevation, managed by primary care team Celiac disease Hx of vocal cord paralysis Clinical Quality Measures DVT/VTE Risk/Contraindication: Risk Factor Score Per Nursin RFS Level Per Nursing on Admit: 4+=Very High JUNITO PRITCHETT May 21, 2019 09:12
--- NOTE | 2019-05-21 09:18 | Progress Note - Ortho ---
Progress Note Subjective Date of Exam 05/21/19 Chief Complaint 5 days postop cemented bipolar hemiarthroplasty left hip HPI/Events since last exam The patient is upset in the chair. She is doing better. Less pain. She still has occasional spasm in the left leg. No other complaints. Review of Systems Reviewed and no additions or changes Allergies: Coded Allergies: No Known Drug Allergies (Unverified , 05/15/19) Home Meds Active Scripts Hydrocodone Bit/Acetaminophen (Hydrocodone/Acetaminophen 5/325mg Tablet) 1 Tab Tab, 1 TAB PO Q4H PRN for PAIN-MODERATE, #20 TAB Prov:FRIEDA GRIFFIN MD 05/21/19 Sennosides/Docusate Sodium (Senna-Time S Tablet) 1 Each Tablet, 1 EA PO BID, #60 TAB Prov:FRIEDA GRIFFIN MD 05/21/19 Reported Medications Nortriptyline HCl (Nortriptyline HCl) 25 Mg Capsule, 25 MG PO HS, CAP 05/16/19 Multivitamin (Multivitamins) 1 Each Tablet, 1 TAB PO DAILY, TAB 05/16/19 Cyanocobalamin (Vitamin B-12) (Vitamin B-12) 1,000 Mcg Tablet, 1000 MCG PO DAILY, TAB 05/16/19 Loratadine (Claritin) 10 Mg Tablet, 10 MG PO DAILY PRN for ALLERGIES, TAB 05/16/19 Estradiol (Estradiol Tablet) 0.5 Mg Tablet, 0.25 MG PO HS, TAB TAKES 1/2 (0.5MG) TABLET 05/16/19 Cyclobenzaprine HCl (Cyclobenzaprine HCl) 5 Mg Tablet, 5 MG PO HS PRN for MUSCLE SPASMS, TAB 05/16/19 Levothyroxine Sodium (Levothyroxine Sodium) 50 Mcg Tablet, 50 MCG PO 0200, TAB 05/16/19 Lorazepam (Lorazepam) 1 Mg Tablet, 0.5 MG PO DAILY PRN for ANXIETY, TAB TAKES 1/2 (1MG) TABLET 05/16/19 Bupropion HCl (Bupropion Xl) 150 Mg Tab.er.24h, 150 MG PO HS, TAB 05/15/19 Apixaban (Eliquis) 5 Mg Tablet, 5 MG PO BID, TAB 05/15/19 Discontinued Reported Medications Celecoxib (Celebrex) 200 Mg Capsule, 200 MG PO DAILY, CAP 05/16/19 Levothyroxine Sodium (Levothyroxine Sodium) 100 Mcg Tablet 05/15/19 Cyclobenzaprine HCl (Cyclobenzaprine HCl) 10 Mg Tablet 05/15/19 Objective Exam Constitutional: [] HEENT: [] Neck: [] Cardiovascular: [] Respiratory: [] Gastrointestinal: [] Genitourinary: [] Skin: [] Back/Spine: [] Extremities: [Her dressing was removed. She has a small amount of serous drainage at the upper aspect the wound a little bit of serosanguineous drainage at the lower aspect of the wound. No redness is noted. Tenderness and negative Homans. She is neurologically intact in both lower extremities. No weakness on dorsiflex or plantarflex his foot or toes. Good capillary refill. Good pulses.] Neurologic: [] Psychiatric: [] Hematologic/lymphatic/immunologic: [] Vital Signs Vital Signs Date Time Temp Pulse Resp B/P (MAP) Pulse Ox O2 Delivery O2 Flow Rate FiO2 05/21/19 08:00 Room Air 05/21/19 07:52 97.7 79 20 134/80 (98) 95 Room Air 05/21/19 07:00 79 05/21/19 05:53 Nasal Cannula 2.00 05/21/19 04:02 98.6 90 18 117/72 (87) 92 Room Air 05/21/19 01:00 92 05/21/19 00:25 98.2 94 18 132/79 (96) 92 Room Air 05/20/19 20:00 96 Room Air 2.00 05/20/19 20:00 98.9 92 18 157/72 (100) 96 Room Air 05/20/19 19:12 92 05/20/19 16:00 97.4 92 20 145/84 (104) 98 Room Air 05/20/19 12:33 98 05/20/19 12:18 98.2 95 18 122/76 (91) 96 Room Air I & O 05/21/19 06:59 Intake Total 2470 ml Balance 2470 ml Lab Results Laboratory Tests 05/21/19 04:57: White Blood Count 7.9, Red Blood Count 2.76L, Hemoglobin 8.7L, Hematocrit 27L, Mean Corpuscular Volume 96, Mean Corpuscular Hemoglobin 32, Mean Corpuscular Hemoglobin Concent 33, Red Cell Distribution Width 13.2, Platelet Count 194, Mean Platelet Volume 10.7H, Neutrophils (%) (Auto) 60, Lymphocytes (%) (Auto) 17, Monocytes (%) (Auto) 11, Eosinophils (%) (Auto) 11H, Basophils (%) (Auto) 1, Neutrophils # (Auto) 4.8, Lymphocytes # (Auto) 1.4, Monocytes # (Auto) 0.9, E osinophils # (Auto) 0.9H, Basophils # (Auto) 0.1, Prothrombin Time 13.8, INR Comment 1.0, Sodium Level 141, Potassium Level 4.0, Chloride Level 108H, Carbon Dioxide Level 23, Anion Gap 10, Blood Urea Nitrogen 11, Creatinine 0.72, Estimat Glomerular Filtration Rate > 60, BUN/Creatinine Ratio 15, Glucose Level 100, Calcium Level 8.7, Corrected Calcium 9.6, Total Bilirubin 0.6, Aspartate Amino Transf (AST/SGOT) 82H, Alanine Aminotransferase (ALT/SGPT) 241H, Alkaline Phosphatase 309H, Total Protein 5.5L, Albumin 2.9L Microbiology 05/16/19 MRSA Screen - Final, Complete MRSA not isolated Assessment and Plan Assessment Doing well 5 days postop cemented bipolar hemiarthroplasty left hip Problem List Unchanged Plan New dressing today. Most likely the patient will be transferred to rehabilitation in [place]. She'll continue with physical therapy walker ambulation weightbearing as tolerated on the left. Dressing changes as needed. Follow-up with her orthopedist in [place]. Usually I will see the patient at 2 weeks postop in the office and remove the ciaran. Final Diagonsis 5 days postop cemented bipolar hemiarthroplasty left hip Level of the visit: Level 3 Clinical Quality Measures DVT/VTE Risk/Contraindication: Risk Factor Score Per Nursin RFS Level Per Nursing on Admit: 4+=Very High JENNY CARRENO MD May 21, 2019 09:18
--- NOTE | 2019-05-21 09:30 | NUR ---
SPO2 DID NOT DROP BELOW 90% WITH EXERTION. Addendum: 05/21/19 at 1111 by LEANN SOSA RT Amended: Links added.
--- NOTE | 2019-05-21 09:48 | Physical Therapy Daily Note ---
PT Daily Note-Current Subjective Patient is more alert and agrees to PT. Pain Numeric Pain Scale: 5-Moderate Pain Location: Left Location Body Site: Hip Pain Description: Acute Mental Status Patient Orientation: Normal For Age Transfers Therapy Code Descriptions/Definitions Functional [place] Measure: 0=Not Assessed/NA 4=Minimal Assistance 1=Total Assistance 5=Supervision or Setup 2=Maximal Assistance 6=Modified [place] 3=Moderate Assistance 7=Complete [place] Therapy Quality Codes: 6 Independent with activity with or without an assistive device 5 Patient requires set up or clean up by helper. Patient completes activity by themselves 4 Supervision or touching assist (CGA). [place] provide cues , steadying assist 3 The helper provides less than half the effort to complete the activity 2 The helper provides more than half the effort to complete the activity 1 Dependent. The helper does all the effort to complete an activity 7 Patient refused to complete or attempt activity 9 The patient did not perform the activity before the current illness or injury 88 Not attempted due to Medical conditions or safety concerns Transfers (B, C, W/C) (FIM): 6 Scootin Supine to/from Sit: 6 Sit to/from Stand: 6 Bed to/from Chair: 6 Weight Bearing Right Lower Extremity: Right Full Weight Bearing Left Lower Extremity: Left Weight Bearing/Tolerated Gait Training Gait (FIM): 6 Distance (FIM): 3=150 ft Distance: 300' Gait Level of Assist: 6 Gait Assistive Device: FWW antalgic, functional gait sequence with no deviation Exercises Supine Ex: Ankle pumps, Quad Set, Heel Slides Supine Reps: 15 Seated Therapy Exercises: Long arc quads Seated Reps: 15 Assessment Patient progressing with treatment plan and will dismiss to OR on this date for continued care. PT Health Plan Specialist Goals Health Plan Specialist Goals PT Health Plan Specialist Goals Time Frame: May 26, 2019 Transfers (B,C,W/C) (FIM): 6 Gait (FIM): 6 Gait distance (FIM): 3=150 ft Distance: 150' Gait Level of Assist: 6 Gait Assistive Device: FWW PT Plan Treatment/Plan Treatment Plan: Discontinue PT, goals met Treatment Plan: Bed Mobility, Education, Functional Activity Cecy, Functional Strength, Gait, Safety, Therapeutic Exercise, Transfers Treatment Duration: May 26, 2019 Frequency: 11 times per week Estimated Hrs Per Day: .5 hour per day Patient and/or Family Agrees t: Yes Time/GCodes Time In: 820 Time Out: 846 Total Billed Treatment Time: 26 Total Billed Treatment 1 visit Ex 14 min GT 12 min IVETTE LITTLE PT May 21, 2019 09:48
--- NOTE | 2019-05-21 10:02 | Cardiology Progress Note ---
Subjective Date Seen by Provider: May 21, 2019 Time Seen by Provider: 10:01 Subjective/Events-last exam patient is walking in the hallway. No new complaint Review of Systems General: No Chills, No Night Sweats, No Fatigue, No Malaise, No Appetite, No Other HEENT: No Head Aches, No Visual Changes, No Eye Pain, No Ear Pain, No Dysphasia, No Sinus Congestion, No Post Nasal Drip, No Sore Throat, No Other Pulmonary: No Dyspnea, No Cough, No Pleuritic Chest Pain, No Other Cardiovascular: No: Chest Pain, Palpitations, Orthopnea, Paroxysmal Noc. Dyspnea, Edema, Lt Headedness, Other Objective-Cardiology Exam Last Set of Vital Signs Vital Signs 05/21/19 05/21/19 05/21/19 05:53 07:52 08:00 Temp 97.7 Pulse 79 Resp 20 B/P (MAP) 134/80 (98) Pulse Ox 95 O2 Delivery Room Air O2 Flow Rate 2.00 Capillary Refill : Less Than 3 SecondsLess Than 3 Seconds I&O Intake and Output 05/21/19 00:00 Intake Total 2360 ml Balance 2360 ml Intake Oral 1560 ml IV Total 800 ml # Voids 10 # Bowel Movements 3 General: Alert, Oriented X3, Cooperative HEENT: Atraumatic, PERRLA Neck: Supple, No JVD, No Thyromegaly Lungs: Clear to Auscultation, Normal Air Movement Heart: Regular Rate, Normal S1, Normal S2, No Murmurs Abdomen: Normal Bowel Sounds, Soft, No Tenderness, No Hepatosplenomegaly, No Masses Extremities: No Clubbing, No Cyanosis, No Edema, Normal Pulses, No Tenderness/Swelling Skin: No Rashes, No Breakdown, No Significant Lesion Neuro: Normal Gait, Normal Speech, Strength at 5/5 X4 Ext, Normal Tone, Sensation Intact Psych/Mental Status: Mental Status NL, Mood NL Results Lab Laboratory Tests 05/21/19 04:57 A/P-Cardiology Admission Diagnosis left hip fracture recent PE Hypothyroidism Headache Assessment/Plan Left hip fracture, postoperative day 5, recovering well. Continue to monitor Anemia, s/p blood transfusion, better, managed by primary care team Sinus tachycardia, probably secondary to anemia. Recent pulmonary embolism, sta rted on low-dose beta blockers with Toprol-XL 25 mg daily and tolerating it well. Continue to monitor History of recent PE, unprovoked, occurring approx 6 weeks ago. continue on Eliquis and monitor Hypothyroidism- follows with schedule hanger in [place]. Headache, improved, CT head done in ER negative Elevated LFT's, persistent elevation, managed by primary care team Celiac disease Hx of vocal cord paralysis Clinical Quality Measures DVT/VTE Risk/Contraindication: Risk Factor Score Per Nursin RFS Level Per Nursing on Admit: 4+=Very High DEE ARMENTA MD May 21, 2019 10:02
[2019-05-21] MEDS ORDERED: METO-387 PO (10:21)
--- NOTE | 2019-05-21 10:25 | Discharge Inst-Skilled Nursing ---
Discharge Inst-Skilled NF Chief Complaint fall Consult/Follow Up/Orders Follow Up Appt.: With Orthopedic Surgery in 2 weeks and with PCP in 1 week. Skilled NF Admit to: [facility] Certification (SNF) I certify that SNF services are required to be given on an inpatient basis because of the above named patient's need for senior living care on a continuing basis for the conditions(s) for which he/she was receiving inpatient hospital services prior to his/her transfer to the SNF. [facility] Facility Order: Nursing Services, [facility]-Evaluate & Treat, Physical Therapy-Evaluate & Treat Oxygen Delivery Method: Room Air Discharge Diet: No Restrictions Daily Activity as Tolerated: Yes New & Resume Previous Orders Frieda Fraire May 21, 2019 10:22 FRIEDA FRAIRE MD May 21, 2019 10:25 am
--- NOTE | 2019-05-21 10:28 | Discharge Summary ---
Diagnosis/Chief Complaint Date of Admission May 15, 2019 at 8:00 pm Date of Discharge Discharge Date: May 21, 2019 Admission Diagnosis Left femoral neck fracture Discharge Diagnosis (1) Closed left hip fracture Status: Acute (2) History of pulmonary embolus (PE) Status: Acute (3) Hepatocellular dysfunction Status: Acute (4) Hypothyroidism Status: Chronic (5) Acute blood loss anemia Status: Acute (6) Eosinophilia Status: Acute Discharge Summary Procedures/Consulations Ortho- Dr Cullen Cardiology- Dr Bennett Discharge Physical Exam Allergies: Coded Allergies: No Known Drug Allergies (Unverified , 05/15/19) Vitals & I&Os Vital Signs Date Time Temp Pulse Resp B/P (MAP) Pulse Ox O2 Delivery O2 Flow Rate FiO2 05/21/19 16:25 84 18 118/70 98 Room Air 2.00 05/21/19 11:41 98.3 General Appearance: No Apparent Distress, WD/WN Cardiovascular: Regular Rate, Rhythm, No Murmur Neurologic/Psychiatric: Alert, Oriented x3 Hospital Course Patient is a 68-year-old female who presented to the emergency department after a fall and was found to have a left hip fracture. Of note she was on anticoagulation without liquids due to previous BTE. She ultimately underwent operative repair with Dr. Overton and recovered well. She did have a transient transaminitis but this resolved an etiology was undetermined. She was seen by physical therapy and occupational therapy and did very well. She was di scharged home with home health and to follow-up with her primary care doctor and an orthopedic surgeon in [place]. Her anticoagulation was resumed and she is to stop her hormone replacement therapy. Labs (last 24 hrs) Microbiology 05/16/19 MRSA Screen - Final, Complete MRSA not isolated Patient resulted labs reviewed. Pending Labs Discussion & Recommendations Discharge Planning: >30 minutes discharge planning Discharge Home Medications: Active Scripts Active Metoprolol Succinate 25 Mg Tab.er.24h 25 Mg PO DAILY Hydrocodone/Acetaminophen 5/325mg Tablet (Acetaminophen/Hydrocodone Bitart) 1 Tab Tab 1 Tab PO Q4H PRN Senna-Time S Tablet (Sennosides/Docusate Sodium) 1 Each Tablet 1 Ea PO BID Reported Nortriptyline HCl 25 Mg Capsule 25 Mg PO HS Multivitamins (Multivitamin) 1 Each Tablet 1 Tab PO DAILY Vitamin B-12 (Cyanocobalamin (Vitamin B-12)) 1,000 Mcg Tablet 1,000 Mcg PO DAILY Claritin (Loratadine) 10 Mg Tablet 10 Mg PO DAILY PRN Cyclobenzaprine HCl 5 Mg Tablet 5 Mg PO HS PRN Levothyroxine Sodium 50 Mcg Tablet 50 Mcg PO 0200 Lorazepam 1 Mg Tablet 0.5 Mg PO DAILY PRN TAKES 1/2 (1MG) TABLET Bupropion Xl (Bupropion HCl) 150 Mg Tab.er.24h 150 Mg PO HS Eliquis (Apixaban) 5 Mg Tablet 5 Mg PO BID Instructions to patient/family Please see electronic discharge instructions given to patient. Clinical Quality Measures DVT/VTE Risk/Contraindication: Risk Factor Score Per Nursin RFS Level Per Nursing on Admit: 4+=Very High FRIEDA GRIFFIN MD May 21, 2019 10:28
--- NOTE | 2019-05-21 10:48 | NUR ---
CM/SS sent the necessary information to [facility]. [facility] stated that they need prior auth from her managed medicare [employer]. They felt they could get auth today and patient could still admit this day. Patient will transport but is not yet here. Updated RN.
[2019-05-21 11:41] VITALS: BP 118/70
--- NOTE | 2019-05-21 14:43 | NUR ---
CM/SS [facility] called to let know that the patient's insurance [employer] a [employer] has denied SNF. Denial apparently due to patient walking 300' and at modified independence.
--- NOTE | 2019-05-21 15:19 | D/C HH Face to Face Order ---
D/C Face to Face Orders Instructions for Patient Via [facility], Patient Instructions/FollowUp: Please continue to take your medications as written. Follow up with your PCP in 1 week and with your orthopedic surgeon in 2 weeks. Physician to follow Patient: Dr Gross Discharge Diet for Home: No Restrictions Patient Data-Allergies,Ht & Wt Patient Allergies: Coded Allergies: No Known Drug Allergies (Unverified , 05/15/19) Height (Feet): 5 Height (Inches): 8.00 Weight (Pounds): 160 Weight (Ounces): 0.3 Home Health Need/Face to Face Date of Face to Face: May 21, 2019 Clinical Findings: Non or partial weight bearing, Unsteady gait I have seen Pt [id number]: Yes Discharged To: Home Diagnosis/Conditions: hip fracture Patient is Homebound due to: William fall risk due to instabilty, Pain w/ambulation Homebound Status Due to the above stated illness, injury or surgical procedure (medical condition or diagnosis) and associated clinical findings, the patient is homebound because of his/her inability to leave home except with aid of a supportive device and/or person AND leaving the home requires a considerable and taxing effort or is medically contraindicated. Pt req the following assistanc: [facility] Nursing Orders Home Health Services Order: Nursing Services, Perfume Compounder-Evaluate & Treat, Physical Therapy-Evaluate & Treat Therapy Orders Therapy Orders: OT (must have SN or PT order), Physical Therapy Therapy Specific Orders: Eval assistive deivces, Teach enviro mod ifications/safety, Gait training, Increase strength/endurance Certify Stmt I certify that this patient is under my care and that I, a nurse practitioner or a physician; a human resources assistant working with me, had a face to face encounter that - meets the physician face to face encounter requirements with this patient as dated. FRIEDA GRIFFIN MD May 21, 2019 3:19 pm
--- NOTE | 2019-05-21 15:55 | NUR ---
CM/SS Patient denied for a SNF stay. Patient and her comfortable with going home with [facility] PT/OT. Spoke with the patient's insurance for in network [facility] providers and there were two [facility] and [facility]. Patient preference for [facility]. Information sent to [facility] and they will reach out to the patient for admission.
[2019-05-21 16:25] VITALS: BP 118/70
== END 2019-05-21 16:00 | disposition home health service (06) | DRG 470 ==
LOC: ER 16:53 → 4TH 20:00
PROVIDERS: ADMIT Internal Medicine; ATTEND Internal Medicine
PROC: 0SRS019 Replacement of Left Hip Joint, Femoral Surface with Metal Synthetic Substitute, Cemented, Open Approach (ICD-10-PCS; principal; 2019-05-16 11:56)
DX: S72.012A Unspecified intracapsular fracture of left femur, initial encounter for closed fracture (principal); S51.811A Laceration without foreign body of right forearm, initial encounter; E03.9 Hypothyroidism, unspecified; K90.0 Celiac disease; D62 Acute posthemorrhagic anemia; K76.89 Other specified diseases of liver; D72.1 Eosinophilia; R74.0 Nonspecific elevation of levels of transaminase and lactic acid dehydrogenase [LDH]; F41.9 Anxiety disorder, unspecified; F32.9 Major depressive disorder, single episode, unspecified; R00.0 Tachycardia, unspecified; R51 Headache; R79.89 Other specified abnormal findings of blood chemistry; Z79.01 Long term (current) use of anticoagulants; Z86.711 Personal history of pulmonary embolism; Z23 Encounter for immunization; W10.9XXA Fall (on) (from) unspecified stairs and steps, initial encounter; Y92.008 Other place in unspecified non-institutional (private) residence as the place of occurrence of the external cause
CPT/HCPCS: 36415; 51702; 70450; 71045; 72125; 73501; 73552; 76705; 80053; 80074; 81000; 82550; 82977; 84439; 84443; 85014; 85018; 85025; 85027; 85610; 85730; 86850; 86900; 86901; 86920; 87081; 90715; 93005; 93041; 93306; 94664; 94761